=== PATIENT | male | born 1930 | race Caucasian/White ===

== ENCOUNTER 2017-09-07 06:59 | Inpatient (IN) | payer OTHER ==
--- OUTSIDE RECORDS SUMMARY | 2017-09-07 07:01 | XMS REPORT ---
:1930 [facility] [address] [place] [address] Care Team Providers Name Role Phone JONATHON NAJERA Unavailable Unavailable Problems This patient has no known problems. Allergies, Adverse Reactions, Alerts This patient has no known allergies or adverse reactions. Medications This patient has no known medications. Results Test Description Test Time Test Comments Text Results Atomic Results Result Comments URINE CULTURE 2016-10-12 11:00:00 Test Item Value Reference Range Comments CULTURE (BEAKER) (test mihe=6798) No growth TROPONIN [id number] 14:17:00 Test Item Value Reference Range Comments TROPONIN I (BEAKER) (test kqzk=719) 0.03 ng/mL 0.00-0.03 Effective 04/17/2014: Reference Range ChangeNew: 0.00-0.03 Previous 0.00- 0.15Troponin I (TnI) levels must be interpreted in the context of the presenting symptoms and the clinical findings. Elevated TnI levels indicate myocardial damage, but are not specific for ischemic heart disease. Elevated TnI levels are seen in patients with other cardiac conditions (including myocarditis and congestive heartfailure), and slight TnI elevations occur in patients with other conditions, including sepsis, renalfailure, acidosis, acute neurological disease, and persistent tachyarrhythmia.FastingURINALYSIS W/ [id number] 09:46:00 Test Item Value Reference Range Comments COLOR (BEAKER) (test boab=306) Yellow CLARITY (BEAKER) (test ecpl=321) Clear SPECIFIC GRAVITY UA (BEAKER) (test hbty=498) 1.009 1.001-1.035 PH UA (BEAKER) (test kzpt=136) 5.5 5.0-8.0 PROTEIN UA (BEAKER) (test vwkv=718) Negative Negative GLUCOSE UA (BEAKER) (test ynma=003) Negative Negative KETONES UA (BEAKER) (test kkao=681) Negative Negative BILIRUBIN UA (BEAKER) (test htpi=340) Negative Negative BLOOD UA (BEAKER) (test ihlu=937) Trace Negative NITRITE UA (BEAKER) (test ulft=730) Negative Negative LEUKOCYTE ESTERASE UA (BEAKER) (test wuys=637) Moderate Negative UROBILINOGEN UA (BEAKER) (test lwye=430) 0.2 mg/dL 0.2-1.0 RBC UA (BEAKER) (test atfn=464) 6 /HPF WBC UA (BEAKER) (test iuln=388) 6 /HPF SOURCE(BEAKER) (test uqrl=2925) Urine, Voided HEMOGLOBIN [id number] 09:13:00 Test Item Value Reference Range Comments HEMOGLOBIN A1C (BEAKER) (test lvtf=288) 4.8 % 4.3-6.1 TSH/FREE T4 IF [id number] 08:42:00 Test Item Value Reference Range Comments THYROID STIMULATING HORMONE (BEAKER) (test 2.41 uIU/mL 0.35-4.94 mrzl=389) VITAMIN B12 AND [id number] 08:42:00 Test Item Value Reference Range Comments VITAMIN B12 (BEAKER) (test jshq=616) 526 pg/mL 213-816 FOLATE (BEAKER) (test qyje=826) 15.4 ng/mL >=7.0 Effective 04/17/2014: Folate Reference Range ChangeNew: >=7.0 Previous: & gt;=5.4CBC W/PLT COUNT & AUTO [id number] 08:18:00 Test Item Value Reference Range Comments WHITE BLOOD CELL COUNT (BEAKER) (test sljb=152) 7.1 K/ L 4.0-10.0 RED BLOOD CELL COUNT (BEAKER) (test xzny=677) 4.37 M/ L 4.20-5.80 HEMOGLOBIN (BEAKER) (test wzwl=866) 14.0 GM/DL 13.0-16.8 HEMATOCRIT (BEAKER) (test pmxi=779) 41.3 % 40.0-50.0 MEAN CORPUSCULAR VOLUME (BEAKER) (test doif=862) 94.6 fL 82.0-98.0 MEAN CORPUSCULAR HEMOGLOBIN (BEAKER) (test 32.0 pg 27.0-33.0 jitx=467) MEAN CORPUSCULAR HEMOGLOBIN CONC (BEAKER) (test 33.8 GM/DL 32.0-36.0 zexu=971) RED CELL DISTRIBUTION WIDTH (BEAKER) (test 12.9 % 10.3-14.2 mzmz=949) PLATELET COUNT (BEAKER) (test qunv=863) 114 K/CU MM 150-430 MEAN PLATELET VOLUME (BEAKER) (test kzrm=261) 8.8 fL 6.5-10.5 NUCLEATED RED BLOOD CELLS (BEAKER) (test 0 /100 WBC 0-0 lkjq=819) NEUTROPHILS RELATIVE PERCENT (BEAKER) (test 57 % ymfh=446) LYMPHOCYTES RELATIVE PERCENT (BEAKER) (test 26 % inbi=561) MONOCYTES RELATIVE PERCENT (BEAKER) (test 12 % acai=332) EOSINOPHILS RELATIVE PERCENT (BEAKER) (test 5 % xgai=936) BASOPHILS RELATIVE PERCENT (BEAKER) (test 0 % tllf=469) NEUTROPHILS ABSOLUTE COUNT (BEAKER) (test 4.10 K/ L 1.80-8.00 xxri=318) LYMPHOCYTES ABSOLUTE COUNT (BEAKER) (test 1.85 K/ L 1.48-4.50 pjwv=888) MONOCYTES ABSOLUTE COUNT (BEAKER) (test 0.83 K/ L 0.00-1.30 jhhy=241) EOSINOPHILS ABSOLUTE COUNT (BEAKER) (test 0.34 K/ L 0.00-0.50 ahzl=279) BASOPHILS ABSOLUTE COUNT (BEAKER) (test 0.03 K/ L 0.00-0.20 zvqr=237) [id number] 07:39:00 Test Item Value Reference Range Comments PHOSPHORUS (BEAKER) (test ickm=385) 3.0 mg/dL 2.3-4.7 [id number] 07:39:00 Test Item Value Reference Range Comments MAGNESIUM (BEAKER) (test kvrp=842) 2.0 mg/dL 1.6-2.6 FastingCOMPREHENSIVE METABOLIC [id number] 07:39:00 Test Item Value Reference Range Comments TOTAL PROTEIN (BEAKER) 6.2 gm/dL 6.0-8.3 (test dxbs=414) ALBUMIN (BEAKER) (test 3.4 g/dL 3.5-5.0 xiat=6354) ALKALINE PHOSPHATASE 94 U/L 40-150 (BEAKER) (test mhvs=683) BILIRUBIN TOTAL (BEAKER) 1.1 mg/dL 0.2-1.2 (test aixp=268) SODIUM (BEAKER) (test 138 meq/L 136-145 itov=807) POTASSIUM (BEAKER) (test 3.9 meq/L 3.5-5.1 xepa=583) CHLORIDE (BEAKER) (test 108 meq/L 98-107 kqhs=894) CO2 (BEAKER) (test 21 meq/L 22-29 tnqq=497) BLOOD UREA NITROGEN 19 mg/dL 7-21 (BEAKER) (test dggv=773) CREATININE (BEAKER) (test 1.05 mg/dL 0.57-1.25 mfog=790) GLUCOSE RANDOM (BEAKER) 84 mg/dL 70-105 (test vqqe=594) CALCIUM (BEAKER) (test 9.5 mg/dL 8.4-10.2 pnvm=624) AST (SGOT) (BEAKER) (test 26 U/L 5-34 vkvj=174) ALT (SGPT) (BEAKER) (test 26 U/L 6-55 tbsx=516) EGFR (BEAKER) (test 67 mL/min/1.73 sq m ESTIMATED GFR IS NOT wnej=4616) ACCURATE CREATININE CLEARANCE IN PREDICTING GLOMERULAR FILTRATION RATE. ESTIMATED GFR IS NOT APPLICABLE FOR DIALYSIS PATIENTS. FastingLIPID [id number] 07:39:00 Test Item Value Reference Range Comments TRIGLYCERIDES (BEAKER) (test ybcw=608) 69 mg/dL CHOLESTEROL (BEAKER) (test jmam=949) 128 mg/dL HDL CHOLESTEROL (BEAKER) (test dshz=343) 42 mg/dL LDL CHOLESTEROL CALCULATED (BEAKER) (test 72 mg/dL cvkf=132) Triglyceride Reference Range: Low Risk <150 Borderline 150- 199 High Risk 200-499 Very High Risk >=500Cholesterol Reference Range: Low Risk <200 Borderline 200-239 High Risk > 240HDL Cholesterol Reference Range: Low Risk >=60 High Risk <40LDL Cholesterol Reference Range: Optimal <100 Near Optimal 100-129 Borderline 130-159 High 160-189 Very High >=190 FastingTROPONIN [id number] 02:04:00 Test Item Value Reference Range Comments TROPONIN I (ARPAN) (test nmgc=851) 0.03 ng/mL 0.00-0.03 Effective 04/17/2014: Reference Range ChangeNew: 0.00-0.03 Previous 0.00- 0.15Troponin I (TnI) levels must be interpreted in the context of the presenting symptoms and the clinical findings. Elevated TnI levels indicate myocardial damage, but are not specific for ischemic heart disease. Elevated TnI levels are seen in patients with other cardiac conditions (including myocarditis and congestive heartfailure), and slight TnI elevations occur in patients with other conditions, including sepsis, renalfailure, acidosis, acute neurological disease, and persistent tachyarrhythmia.
--- OUTSIDE RECORDS SUMMARY | 2017-09-07 07:01 | XMS REPORT | Clinical Summary ---
:1930 Author Organization [facility] Address [address] [place] [address] Phone Care Team Providers Name Role Phone Unavailable Primary Care Provider Unavailable Allergies No Known Allergies Current Medications Prescription Sig. Disp. Refills Start Date End Date Status atorvastatin (LIPITOR) 40 Take 40 mg by Active MG tablet mouth daily. furosemide (LASIX) 40 MG Take 40 mg by Active tablet mouth daily. clopidogrel (PLAVIX) 75 mg Take 75 mg by Active tablet mouth daily. metoprolol (TOPROL-XL) 25 Take 25 mg by Active MG 24 hr tablet mouth daily. potassium chloride SA Take 20 mEq by Active (K-DUR,KLOR-CON) 20 MEQ mouth daily. tablet Active Problems Problem Noted Date Cerebrovascular accident (CVA), unspecified mechanism ([facility]) 10/11/2016 Left-sided weakness 10/11/2016 Stroke ([facility]) 10/10/2016 Uncontrolled hypertension 10/10/2016 Coronary artery disease involving [place] coronary artery of [place] heart 10/10 without angina pectoris S/P CABG x 3 10/10/2016 Skin cancer 10/10/2016 H/O aortic aneurysm repair 10/10/2016 S/P placement of cardiac pacemaker 10/10/2016 Mixed hyperlipidemia 10/10/2016 Encounters Date Type Specialty Care Team Description 10/10/2016 - Hospital Encounter General Internal [place], Cerebrovascular 10/11/2016 Medicine MD Wilmer accident (CVA), [place], unspecified mechanism Danis Barrow MD ([facility]);Uncontrolled hypertension;Left-sided weakness after 09/06/2016 Social History Tobacco Use Types Packs/Day Years Used Date Never Assessed Sex Assigned at Date Recorded Not on file Last Filed Vital Signs Vital Sign Reading Time Taken Blood Pressure 187/81 10/11/2016 8:15 AM CDT Pulse 88 10/11/2016 8:15 AM CDT Temperature 36.4 C (97.5 F) 10/11/2016 8:15 AM CDT Respiratory Rate 18 10/11/2016 8:15 AM CDT Oxygen Saturation 95% 10/11/2016 8:15 AM CDT Inhaled Oxygen Concentration - - Weight 65.8 kg (145 lb) 10/11/2016 12:00 AM CDT Height 172.7 cm (5' 8") 10/11/2016 12:00 AM CDT Body Mass Index 22.05 10/11/2016 12:00 AM CDT Plan of Treatment Not on file Results EKG-SCANNED (11/24/2016 12:20 PM)RHYTHM STRIP - SCAN (10/13/2016 2:00 PM) PERIPHERAL VASCULAR REPORT - SCAN (10/11/2016 3:20 PM)Carotid doppler bilateral (10/11/2016 10:30 AM) Component Value Ref Range Ejection Fraction Specimen Performing Laboratory SLE ECHO HEARTLAB MKCKESSON CPACS Impressions Right Impression 1. Post stent placement, the internal carotid artery is patent with velocities of: Pre stent- 51 cm/sec, proximal stent- 41 cm/sec , post stent- 67 cm/sec. 2. There is non-occluding plaque in the external carotid artery. 3. There is non-occluding plaque in the common carotid artery. 4. The vertebral artery flow is antegrade and normal. 5. The subclavian artery is within normal limits where visualized. Left Impression 1. There is <50% diameter reduction (approximately 48% by 2-D measurement) in the internal carotid artery with a peak velocity of 90 cm/sec and heterogeneous plaque. 2. There is non-occluding plaque in the external carotid artery. 3. There is non-occluding plaque in the common carotid artery. 4. Post endarterectomy, the distal common carotid artery is patent with a velocity of 49 cm/sec. 4. The vertebral artery flow is antegrade and normal. 5. The subclavian artery is within normal limits where visualized. Conclusions Summary Carotid duplex scanning and color flow imaging were performed bilaterally. The arteries were adequately visualized. Post stent placement, the right internal carotid artery was patent with no significant stenosis. The left internal carotid artery had <50% hemodynamically insignificant stenosis (approximately 48% by 2-D measurement) with heterogeneous plaque. Post endarterectomy, the left distal common carotid artery was patent with no significant stenosis. The vertebral artery flow was antegrade and normal bilaterally. The subclavian arteries were patent with normal flow bilaterally where visualized. Signature Velocities are measured in cm/s ; Diameters are measured in cm Carotid Right Measurements + +----+----+-----+ + + + !Location !PSV !EDV !Angle!%Stenosis 2D!%Stenosis Doppler! Tortuosity ! + +----+----+-----+ + + + !Prox CCA !63.9!12.3!60 !! ! ! + +----+----+-----+ + + + !Dist CCA !51.9!9.04!60 !! ! ! + +----+----+-----+ + + + !Prox ICA !41!12.9!60 !! ! ! + +----+----+-----+ + + + !Dist ICA !67.4!19.3!60 !! ! ! + +----+----+-----+ + + + !Prox ECA !121 !17.7!60 !! ! ! + +----+----+-----+ + + + !Vertebral!36.9!8.64!60 !! ! ! + +----+----+-----+ + + + !Prox Subclavian!105 !0 !60 !! ! ! + +----+----+-----+ + + + - There is antegrade vertebral flow noted on the right side. - Additional Measurements:ICAPSV/CCAPSV 1.3.ICAEDV/CCAEDV 1.57. Carotid Left Measurements + +----+----+-----+ + + + !Location !PSV !EDV !Angle!%Stenosis 2D!%Stenosis Doppler! Tortuosity ! + +----+----+-----+ + + + !Prox CCA !77!12.6!60 !! ! ! + +----+----+-----+ + + + !Dist CCA !49.5!8.64!60 !! ! ! + +----+----+-----+ + + + !Prox ICA !51.5!9.43!60 !! ! ! + +----+----+-----+ + + + !Dist ICA !90.4!28.3!60 !! ! ! + +----+----+-----+ + + + !Prox ECA !64.4!0 !60 !! ! ! + +----+----+-----+ + + + !Vertebral!69.1!22!60 !! ! ! + +----+----+-----+ + + + !Prox Subclavian!120 !0 !60 !! ! ! + +----+----+-----+ + + + - There is antegrade vertebral flow noted on the left side. - Additional Measurements:ICAPSV/CCAPSV 1.83.ICAEDV/CCAEDV 2.25. Narrative PV LAB - Carotid Duplex Study Demographics Patient Name Abraham HAMILTON of Study10/11/2016 [id number] Age86 Visit Number [id number] Gender Male Accession Number [id number] [facility]1930 [facility]icianOn License Of [facility] Centersasha SonographRoseline Singh Interpreting Cristiane Weinstein, Physician, DAWNVI Procedure Type of Study: Cerebral: Carotid, CAROTID DOPPLER, BILATERAL. Indications for Study:CVA. Patient Status:Routine. Study Location:Portable. Technical Quality:Adequate visualization. Risk Factors History of Disease + +----+ + !Diagnosis!Date!Comments ! + +----+ + !History/Risk !!Stroke, HTN, CAD w/ CABG X3, h/o Aortic Aneurysm ! !Factors: !!repair, HLD, Rt ICA stent, Lt CEA! + +----+ + Procedure Note Interface, External Ris In - 10/11/2016 2:42 PM CDT PV LAB - Carotid Duplex Study Demographics Patient Name AUDREY HAMILTON Date of Study 10/11/2016 Age 86 Visit Number [id number] Gender Male Accession Number [id number] Date of 1930 [facility] Room Number 2235 Physician [place] Boiler Inspectorevelin Singh Interpreting Cristiane Weinstein, Physician , ADRIENNE Procedure Type of Study: Cerebral: Carotid, CAROTID DOPPLER, BILATERAL. Indications for Study:CVA. Patient Status:Routine. Study Location:Portable. Technical Quality:Adequate visualization. Risk Factors History of Disease + +----+ + !Diagnosis !Date!Comments ! + +----+ + !History/Risk ! !Stroke, HTN, CAD w/ CABG X3, h/o Aortic Aneurysm ! !Factors: ! !repair, HLD, Rt ICA stent, Lt CEA ! + +----+ + Impressions Right Impression 1. Post stent placement, the internal carotid artery is patent with velocities of: Pre stent- 51 cm/sec, proximal stent- 41 cm/sec , post stent- 67 cm/sec. 2. There is non-occluding plaque in the external carotid artery. 3. There is non-occluding plaque in the common carotid artery. 4. The vertebral artery flow is antegrade and normal. 5. The subclavian artery is within normal limits where visualized. Left Impression 1. There is <50% diameter reduction (approximately 48% by 2-D measurement) in the internal carotid artery with a peak velocity of 90 cm/sec and heterogeneous plaque. 2. There is non-occluding plaque in the external carotid artery. 3. There is non-occluding plaque in the common carotid artery. 4. Post endarterectomy, the distal common carotid artery is patent with a velocity of 49 cm/sec. 4. The vertebral artery flow is antegrade and normal. 5. The subclavian artery is within normal limits where visualized. Conclusions Summary Carotid duplex scanning and color flow imaging were performed bilaterally. The arteries were adequately visualized. Post stent placement, the right internal carotid artery was patent with no significant stenosis. The left internal carotid artery had <50% hemodynamically insignificant stenosis (approximately 48% by 2-D measurement) with heterogeneous plaque. Post endarterectomy, the left distal common carotid artery was patent with no significant stenosis. The vertebral artery flow was antegrade and normal bilaterally. The subclavian arteries were patent with normal flow bilaterally where visualized. Signature Velocities are measured in cm/s ; Diameters are measured in cm Carotid Right Measurements + +----+----+-----+ + + + !Location !PSV !EDV !Angle!%Stenosis 2D!%Stenosis Doppler!Tortuosity ! + +----+----+-----+ + + + !Prox CCA !63.9!12.3!60 ! ! ! ! + +----+----+-----+ + + + !Dist CCA !51.9!9.04!60 ! ! ! ! + +----+----+-----+ + + + !Prox ICA !41 !12.9!60 ! ! ! ! + +----+----+-----+ + + + !Dist ICA !67.4!19.3!60 ! ! ! ! + +----+----+-----+ + + + !Prox ECA !121 !17.7!60 ! ! ! ! + +----+----+-----+ + + + !Vertebral !36.9!8.64!60 ! ! ! ! + +----+----+-----+ + + + !Prox Subclavian!105 !0 !60 ! ! ! ! + +----+----+-----+ + + + - There is antegrade vertebral flow noted on the right side. - Additional Measurements:ICAPSV/CCAPSV 1.3.ICAEDV/CCAEDV 1.57. Carotid Left Measurements + +----+----+-----+ + + + !Location !PSV !EDV !Angle!%Stenosis 2D!%Stenosis Doppler!Tortuosity ! + +----+----+-----+ + + + !Prox CCA !77 !12.6!60 ! ! ! ! + +----+----+-----+ + + + !Dist CCA !49.5!8.64!60 ! ! ! ! + +----+----+-----+ + + + !Prox ICA !51.5!9.43!60 ! ! ! ! + +----+----+-----+ + + + !Dist ICA !90.4!28.3!60 ! ! ! ! + +----+----+-----+ + + + !Prox ECA !64.4!0 !60 ! ! ! ! + +----+----+-----+ + + + !Vertebral !69.1!22 !60 ! ! ! ! + +----+----+-----+ + + + !Prox Subclavian!120 !0 !60 ! ! ! ! + +----+----+-----+ + + + - There is antegrade vertebral flow noted on the left side. - Additional Measurements:ICAPSV/CCAPSV 1.83.ICAEDV/CCAEDV 2.25. CT brain without IV contrast (10/11/2016 9:40 AM) Specimen Performing Laboratory GE RIS Impressions : No intracranial hemorrhage or mass effect. Mild ischemic changes, stable when compared to 10/10/2016. Signed: Shelton Dixon MD Report Verified Date/Time:10/11/2016 09:43:36 Reading Location: [facility] C013V Neuro Reading Room Narrative FINAL REPORT CT head without contrast 10/11/2016 9:40 AM CLINICAL HISTORY: Follow up CT to assess for stroke. Cannot get MRI 2/2 pacemaker TECHNIQUE: Axial noncontrast CT images through the head were obtained. This examination was performed according to our departmental dose optimization program, which includes automated exposure control, adjustment of the mA and/or kV according to patient size, and/or use of iterated reconstruction technique. COMPARISON: 10/10/2016 FINDINGS: There is no hemorrhage, extra-axial collection, hydrocephalus, or midline shift. A 3 mm hyperdense nodule along the anterior frontal falx may reflect an incidental meningioma. There is mild microvascular ischemia in the right greater than left supratentorial white matter. There is a small infarct in the right caudate nucleus. There is atherosclerotic calcification of the intracranial arterial vasculature. There is generalized parenchymal volume loss. The visualized paranasal sinuses and mastoid air cells are well aerated. The skull is intact. Procedure Note Interface, External Ris In - 10/11/2016 9:52 AM CDT FINAL REPORT CT head without contrast 10/11/2016 9:40 AM CLINICAL HISTORY: Follow up CT to assess for stroke. Cannot get MRI 2/2 pacemaker TECHNIQUE: Axial noncontrast CT images through the head were obtained. This examination was performed according to our departmental dose optimization program, which includes automated exposure control, adjustment of the mA and/or kV according to patient size, and/or use of iterated reconstruction technique. COMPARISON: 10/10/2016 FINDINGS: There is no hemorrhage, extra-axial collection, hydrocephalus, or midline shift. A 3 mm hyperdense nodule along the anterior frontal falx may reflect an incidental meningioma. There is mild microvascular ischemia in the right greater than left supratentorial white matter. There is a small infarct in the right caudate nucleus. There is atherosclerotic calcification of the intracranial arterial vasculature. There is generalized parenchymal volume loss. The visualized paranasal sinuses and mastoid air cells are well aerated. The skull is intact. IMPRESSION : No intracranial hemorrhage or mass effect. Mild ischemic changes, stable when compared to 10/10/2016. Signed: Shelton Dixon MD Report Verified Date/Time: 10/11/2016 09:43:36 Reading Location: [facility] C013V Neuro Reading Room Urine culture (10/11/2016 8:47 AM) Component Value Ref Range Result No growth Specimen Performing Laboratory Urine - Urine, Voided [address] [address] Urinalysis w/Microscopic (10/11/2016 8:46 AM) Component Value Ref Range Color, UA Yellow Clarity, UA Clear Specific [place], UA 1.009 1.001 - 1.035 pH, UA 5.5 5.0 - 8.0 Protein, UA Negative Negative Glucose, UA Negative Negative Ketones, UA Negative Negative Bilirubin, UA Negative Negative Blood, UA Trace (A) Negative Nitrite, UA Negative Negative Leukocytes, UA Moderate (A) Negative Urobilinogen, UA 0.2 0.2 - 1.0 mg/dL RBC, UA 6 /HPF WBC, UA 6 /HPF Specimen Source Urine, Voided Specimen Performing Laboratory Urine - Urine, Voided [address] [address] Vitamin B12 and Folate (10/11/2016 6:14 AM) Component Value Ref Range Vitamin B12 526 213 - 816 pg/mL Folate 15.4 >=7.0 ng/mL Specimen Performing Laboratory Blood - Arm, [address] [address] Narrative Effective 04/17/2014: Folate Reference Range Change New: >=7.0Previous: >=5.4 TSH/Free T4 If Indicated (10/11/2016 6:14 AM) Component Value Ref Range TSH 2.41 0.35 - 4.94 uIU/mL Specimen Performing Laboratory Blood - Arm, [address] [address] CBC with platelet count + automated diff (10/11/2016 6:14 AM) Component Value Ref Range WBC 7.1 4.0 - 10.0 K/L RBC 4.37 4.20 - 5.80 M/L Hemoglobin 14.0 13.0 - 16.8 GM/DL Hematocrit 41.3 40.0 - 50.0 % MCV 94.6 82.0 - 98.0 fL MCH 32.0 27.0 - 33.0 pg MCHC 33.8 32.0 - 36.0 GM/DL RDW 12.9 10.3 - 14.2 % Platelets 114 (L) 150 - 430 K/CU MM MPV 8.8 6.5 - 10.5 fL nRBC 0 0 - 0 /100 WBC % Neutros 57 % % Lymphs 26 % % Monos 12 % % Eos 5 % % Baso 0 % # Neutros 4.10 1.80 - 8.00 K/L # Lymphs 1.85 1.48 - 4.50 K/L # Monos 0.83 0.00 - 1.30 K/L # Eos 0.34 0.00 - 0.50 K/L # Baso 0.03 0.00 - 0.20 K/L Specimen Performing Laboratory Blood - Arm, [address] [address] Narrative 0.00 Troponin I (10/11/2016 6:14 AM)Only the most recent of2 resultswithin the time period is included. Component Value Ref Range Troponin I 0.03 0.00 - 0.03 ng/mL Specimen Performing Laboratory Blood - Arm, [address] [address] Narrative Effective 04/17/2014: Reference Range Change New: 0.00-0.03 Previous 0.00-0.15 Troponin I (TnI) levels must be interpreted in the context of the presenting symptoms and the clinical findings. Elevated TnI levels indicate myocardial damage, but are not specific for ischemic heart disease. Elevated TnI levels are seen in patients with other cardiac conditions (including myocarditis and congestive heart failure), and slight TnI elevations occur in patients with other conditions, including sepsis, renal failure, acidosis, acute neurological disease, and persistent tachyarrhythmia. Fasting CBC with platelet count + automated diff (10/11/2016 6:14 AM) Specimen Performing Laboratory Blood Narrative The following orders were created for panel order CBC with platelet count + automated diff. Procedure Abnormality Status --------- ------ CBC with platelet count ...[[id number]]AbnormalFinal result Please view results for these tests on the individual orders. Phosphorus (10/11/2016 6:14 AM) Component Value Ref Range Phosphorus 3.0 2.3 - 4.7 mg/dL Specimen Performing Laboratory Blood - Arm, [address] [address] Narrative Fasting Magnesium (10/11/2016 6:14 AM) Component Value Ref Range Magnesium 2.0 1.6 - 2.6 mg/dL Specimen Performing Laboratory Blood - Arm, [place] [address] Narrative Fasting Hemoglobin A1c (10/11/2016 6:14 AM) Component Value Ref Range Hemoglobin A1C 4.8 4.3 - 6.1 % Specimen Performing Laboratory Blood - Arm, [address] [address] Fasting lipid panel (10/11/2016 6:14 AM) Component Value Ref Range Triglycerides 69 mg/dL Cholesterol 128 mg/dL HDL 42 mg/dL LDL Calculated 72 mg/dL Specimen Performing Laboratory Blood - Arm, [address] [address] Narrative Triglyceride Reference Range: Low Risk <150 [id number] High Risk 200-499 Very High Risk>=500 Cholesterol Reference Range: Low Risk <200 [id number] High Risk>240 HDL Cholesterol Reference Range: Low Risk >=60 High Risk <40 LDL Cholesterol Reference Range: Optimal<100 Near [id number] [id number] Very High >=190 Fasting Comprehensive metabolic panel (10/11/2016 6:14 AM) Component Value Ref Range Protein, Total 6.2 6.0 - 8.3 gm/dL Albumin 3.4 (L) 3.5 - 5.0 g/dL Alkaline Phosphatase 94 40 - 150 U/L Total Bilirubin 1.1 0.2 - 1.2 mg/dL Sodium 138 136 - 145 meq/L Potassium 3.9 3.5 - 5.1 meq/L Chloride 108 (H) 98 - 107 meq/L CO2 21 (L) 22 - 29 meq/L BUN 19 7 - 21 mg/dL Creatinine 1.05 0.57 - 1.25 mg/dL Glucose 84 70 - 105 mg/dL Calcium 9.5 8.4 - 10.2 mg/dL AST 26 5 - 34 U/L ALT 26 6 - 55 U/L EGFR 67Comment: ESTIMATED GFR IS NOT ACCURATE mL/min/1.73 sq m CREATININE CLEARANCE IN PREDICTING GLOMERULAR FILTRATION RATE. ESTIMATED GFR IS NOT APPLICABLE FOR DIALYSIS PATIENTS. Specimen Performing Laboratory Blood - Arm, [place] [address] Narrative Fasting XR chest 1 view portable / bedside (10/10/2016 9:45 PM) Specimen Performing Laboratory GE RIS Narrative FINAL REPORT History: Rule out pneumonia. Comparison: None. Findings: A single view of the chest is submitted. The cardiac silhouette is at the upper limits of normal for size. There is atherosclerotic calcification of the aorta. Median sternotomy wires and a left subclavian, dual-lead pacemaker are in place. There is a small left pleural effusion. Retrocardiac opacity in the left lung may reflect atelectasis but pneumonia should be excluded clinically. There is no pneumothorax or acute bony abnormality. Signed: Braden Romero MD Report Verified Date/Time:10/10/2016 22:16:17 Reading Location: [address] Reading Room Procedure Note Interface, External Ris In - 10/10/2016 10:18 PM CDT FINAL REPORT History: Rule out pneumonia. Comparison: None. Findings: A single view of the chest is submitted. The cardiac silhouette is at the upper limits of normal for size. There is atherosclerotic calcification of the aorta. Median sternotomy wires and a left subclavian, dual-lead pacemaker are in place. There is a small left pleural effusion. Retrocardiac opacity in the left lung may reflect atelectasis but pneumonia should be excluded clinically. There is no pneumothorax or acute bony abnormality. Signed: Braden Romero MD Report Verified Date/Time: 10/10/2016 22:16:17 Reading Location: [address] Room after 09/06/2016
[2017-09-07] MEDS ORDERED: FUROSEMIDE 40 MG/4 ML VIAL ONE (07:32)
[2017-09-07 08:04] LABS: Absolute Monocytes 0.8 K/uL (0.1-1.3); Absolute Neutrophil 6.1 K/uL (1.8-8.0); Basophils % 0.3 % (0-1.3); Eosinophils % 0.2 % (0-4.4); Hematocrit 43.9 % (39.6-49.0); MCH 29.5 pg (27.0-35.0); MCV 90.3 fL (80-100); MPV 9.8 fL (7.6-11.3); Monocytes % 10.2 % (3.3-12.3); RBC Red Blood Cell Count 4.86 M/uL (4.33-5.43)
[2017-09-07 08:07] LABS: Protime INR 1.14
[2017-09-07 08:20] LABS: Potassium 4.9 mEq/L (3.6-5.0)
--- NOTE | 2017-09-07 08:38 | RAD REPORT ---
EXAM DESCRIPTION: RAD - Chest Single View - 09/07/2017 8:12 am CLINICAL HISTORY: Productive cough, shortness of breath COMPARISON: September 2016 TECHNIQUE: AP portable chest image was obtained 0807 hours . FINDINGS: Lung volumes are normal. Patient has chronic interstitial lung disease not substantially d ifferent from the comparison. There is left pleural effusion and left base opacification obscuring th e left hemidiaphragm. Heart size is slightly enlarged from the prior study. Upper lobe vasculature wi thin normal limits. A 2 lead left subclavian pacemaker is in place with sternotomy wires present. No pneumothorax. Trachea is midline. Thoracic spine degenerative changes are present only minimally imag ed. No acute aortic findings suspected. IMPRESSION: Pleural effusion with left lung base pneumonia and/ or atelectasis. Heart size is upper normal. Significant failure or volume overload are doubtful. Baseline of chronic interstitial lung disease.
--- NOTE | 2017-09-07 08:57 | ER ---
Nurse's Notes [facility] Name: Marcial Hamilton Age: 87 yrs Sex: Male : 1930 Arrival Date: 09/07/2017 Time: 07:00 Bed 13 Private MD: Diagnosis: Unspecified combined systolic (congestive) and diastolic (congestive) heart failure;Pulmonary edema;Hypoxemia Presentation: 09/07 07:07 Presenting complaint: Patient states: Productive cough with white sputum and SOB x 2 hb days. Denies pain/fever. Hx HTN, COPD, CABG. Has not taken morning meds yet. Transition of care: patient was not received from another setting of care. Onset of symptoms was September 05, 2017. Care prior to arrival: None. 07:07 Method Of Arrival: Ambulatory hb 07:07 Acuity: LEANDRO 3 hb Triage Assessment: 07:29 Respiratory: Reports cough that is productive, with white phlegm Onset: The ap3 symptoms/episode began/occurred 09/05/2017, the patient has moderate shortness of breath. Historical: - Allergies: 07:09 Codeine; hb - Home Meds: 07:09 aspirin 325 mg Oral tab 1 tab once daily [Active]; atorvastatin 40 mg Oral tab 1 tab hb once daily [Active]; clopidogrel 75 mg Oral tab 1 tab once daily [Active]; furosemide 40 mg Oral tab 1 tab once daily [Active]; metoprolol tartrate 25 mg Oral tab 1 tab once daily [Active]; potassium chloride 20 mEq Oral TbER 1 tab once daily [Active]; - PMHx: 07:09 "fluid around the heart"; CHF; CVA; enlarged prostate; Hyperlipidemia; Hypertension; hb Myocardial infarction; - PSHx: 07:09 stents in left ear; triple bypass; AAA repair; Cholecystectomy; pace maker; hb - Immunization history:: Adult Immunizations up to date. - Social history:: Smoking status: Patient/guardian denies using tobacco. - Family history:: not pertinent. - Hospitalizations: : No recent hospitalization is reported. Screenin:28 Abuse screen: Denies threats or abuse. Nutritional screening: No deficits noted. ap3 Tuberculosis screening: No symptoms or risk factors identified. Fall Risk None identified. Assessment: 07:24 General: Appears distressed, slender, Behavior is calm, cooperative. Pain: Complains of ap3 pain in chest Aggravated by coughing. Neuro: Level of Consciousness is awake, alert, obeys commands, Oriented to person, place, time, situation. Cardiovascular: Heart tones S1 S2 present Patient's skin is warm and dry. Rhythm is regular. Respiratory: Airway is patent Respiratory effort is even, unlabored, Breath sounds are diminished bilaterally. GI: Abdomen is flat, Bowel sounds present X 4 quads. : No signs and/or symptoms were reported regarding the genitourinary system. EENT: No signs and/or symptoms were reported regarding the EENT system. Derm: Bruising that is dark purple, on right arm and left arm. Musculoskeletal: Reports weakness in generalized weakness of the body. 09:32 Reassessment: patient sitting up in bed, watching TV. Spouse at the bedside. ap3 Respirations even and unlabored. Call oscar within reach. 10:33 Reassessment: patient sitting up in bed, watching TV. Respirations even and unlabored. ap3 Spouse at the bedside. Gave patient an update on room assignment. 10:49 Reassessment: called report to 4th floor. Spoke to Sherie, who states that the room ap3 isn't clean yet. Transferred to receiving nurse to give report. Report given to SHIV Rodriguez. 11:01 Reassessment: I agree with th above assessments. ae1 Vital Signs: 07:08 BP 170 / 111; Pulse 104; Resp 20; Temp 98; Pulse Ox 99% on R/A; Pain 0/10; hb 09:10 BP 170 / 93; Pulse 108; Resp 25; Pulse Ox 98% on 2 lpm NC; mh5 09:25 BP 169 / 92; Pulse 109; Resp 17; Pulse Ox 98% on 2 lpm NC; ae1 10:56 BP 165 / 101; Pulse 107; Resp 19; Pulse Ox 95% on 2 lpm NC; ap3 ED Course: 07:00 Patient arrived in ED. ds1 07:05 Kwadwo Estrada MD is Attending Physician. rn 07:08 Triage completed. hb 07:08 Arm band placed on left wrist. hb 07:31 Vitaly Freire, SHIV is Primary Nurse. ae1 07:31 Patient has correct armband on for positive identification. Bed in low position. Call ap3 light in reach. Side rails up X 1. Adult w/ patient. library monitor on. Pulse ox on. NIBP on. 07:58 Inserted saline lock: 22 gauge in right antecubital area, using aseptic technique. ap3 Blood collected. 08:12 XRAY CXR (1 view) In Process Unspecified. EDMS 08:12 X-ray completed. Portable x-ray completed in exam room. Patient tolerated procedure sw well. 08:43 EKG done, by cadd technician. reviewed by Kwadwo Estrada MD. tc 08:56 Moror Donnelly MD is Hospitalizing Provider. rn 11:19 No provider procedures requiring assistance completed. Patient admitted, IV remains in ae1 place. Administered Medications: 07:51 Drug: Lasix 40 mg Route: IVP; Site: right antecubital; ae1 09:13 Follow up: Response: Other; 100 mls jadiel urine. ae1 11:21 Follow up: Response: Other; 300 mls jadiel urine ae1 09:07 Drug: Nitro-Bid Ointment 2 % 0.5 inches Route: Transdermal; Site: anterior chest wall; ae1 09:25 Follow up: Response: Blood pressure is lowered ae1 Intake: Outcome: 08:56 Decision to Hospitalize by Provider. rn 11:00 Attestation : I agree with the charting done by Oma Castañeda, school of nursing director. . ae1 11:20 Admitted to Tele accompanied by ashia, family with patient, room 420, with chart, Report ae1 called to SHIV Rodriguez 11:20 Condition: stable 11:20 Instructed on the need for admit, Demonstrated understanding of instructions. 11:22 Patient left the ED. ae1 Signatures: Dispatcher [employer] EDMO Hollie Heck ds1 Kwadwo Estrada MD MD rn Callis, Tiffany, secured entrance monitor EKG Ttc Alfreda Garcia Heather, RN RN hb Elliott, Andrea, RN RN ae1 Lisbeth Liao Terry Castañeda, Oma rios
--- NOTE | 2017-09-07 08:57 | EDPHYS ---
Physician Documentation [facility] Name: Marcial Hamilton Age: 87 yrs Sex: Male : 1930 Arrival Date: 09/07/2017 Time: 07:00 Bed 13 Private MD: ED Physician Kwadwo Estrada HPI: 09/07 07:26 This 87 yrs old Male presents to ER via Ambulatory with complaints of rn Breathing Difficulty, Weakness. 07:26 The patient has shortness of breath at rest, with light activity. Onset: The rn symptoms/episode began/occurred 3 day(s) ago. Duration: The symptoms are continuous. The patient's shortness of breath is aggravated by exertion, light activity, supine position, talking, walking. Severity of symptoms: At their worst the symptoms were moderate in the emergency department the symptoms are unchanged. The patient has experienced similar episodes in the past. Reports doesn't take his fluid pills regularly, has been sob for 2-3 days, no fever, + white sputum, + generalized weakness, no hemoptysis, also ran out of his BP meds recently. . Historical: - Allergies: 07:09 Codeine; hb - Home Meds: 07:09 aspirin 325 mg Oral tab 1 tab once daily [Active]; atorvastatin 40 mg Oral tab 1 tab hb once daily [Active]; clopidogrel 75 mg Oral tab 1 tab once daily [Active]; furosemide 40 mg Oral tab 1 tab once daily [Active]; metoprolol tartrate 25 mg Oral tab 1 tab once daily [Active]; potassium chloride 20 mEq Oral TbER 1 tab once daily [Active]; - PMHx: 07:09 "fluid around the heart"; CHF; CVA; enlarged prostate; Hyperlipidemia; Hypertension; hb Myocardial infarction; - PSHx: 07:09 stents in left ear; triple bypass; AAA repair; Cholecystectomy; pace maker; hb - Immunization history:: Adult Immunizations up to date. - Social history:: Smoking status: Patient/guardian denies using tobacco. - Family history:: not pertinent. - Hospitalizations: : No recent hospitalization is reported. ROS: 07:26 Constitutional: Negative for fever, chills, and weight loss, Eyes: Negative for injury, rn pain, redness, and discharge, Neck: Negative for injury, pain, and swelling, Cardiovascular: Negative for chest pain, palpitations Respiratory: Negative for wheezing, and pleuritic chest pain, Abdomen/GI: Negative for abdominal pain, nausea, vomiting, diarrhea, and constipation, Back: Negative for injury and pain, MS/Extremity: Negative for injury and deformity, Skin: Negative for injury, rash, and discoloration, Neuro: Negative for headache, numbness, tingling, and seizure. Exam: 07:26 Constitutional: This is a well developed, well nourished patient who is awake, alert, rn and in no acute distress. Head/Face: Normocephalic, atraumatic. Eyes: Pupils equal round and reactive to light, extra-ocular motions intact. Lids and lashes normal. Conjunctiva and sclera are non-icteric and not injected. Cornea within normal limits. Periorbital areas with no swelling, redness, or edema. Neck: Trachea midline, no thyromegaly or masses palpated, and no cervical lymphadenopathy. Supple, full range of motion without nuchal rigidity, or vertebral point tenderness. No Meningismus. Cardiovascular: Regular rate and rhythm with a normal S1 and S2. No gallops, murmurs, or rubs. Normal PMI, no JVD. No pulse deficits. Respiratory: + diminished bibasilar breath sounds, no wheezing, no retractions Abdomen/GI: Soft, non-tender, with normal bowel sounds. No distension or tympany. No guarding or rebound. No evidence of tenderness throughout. MS/ Extremity: Pulses equal, no cyanosis. Neurovascular intact. Full, normal range of motion. Equal circumference. Neuro: Awake and alert, GCS 15, oriented to person, place, time, and situation. Cranial nerves II-XII grossly intact. Motor strength 5/5 in all extremities. Sensory grossly intact. Vital Signs: 07:08 BP 170 / 111; Pulse 104; Resp 20; Temp 98; Pulse Ox 99% on R/A; Pain 0/10; hb 09:10 BP 170 / 93; Pulse 108; Resp 25; Pulse Ox 98% on 2 lpm NC; mh5 09:25 BP 169 / 92; Pulse 109; Resp 17; Pulse Ox 98% on 2 lpm NC; ae1 10:56 BP 165 / 101; Pulse 107; Resp 19; Pulse Ox 95% on 2 lpm NC; ap3 MDM: 07:05 Patient medically screened. rn 08:55 Differential diagnosis: CHF exacerbation, Pneumothorax pulmonary edema. Data reviewed: rn vital signs, nurses notes, lab test result(s), EKG, radiologic studies, plain films, and as a result, I will admit patient. Counseling: I had a detailed discussion with the patient and/or guardian regarding: the historical points, exam findings, and any diagnostic results supporting the discharge/admit diagnosis, lab results, radiology results, the need for further work-up and treatment in the hospital. Response to treatment: the patient's symptoms have mildly improved after treatment, and as a result, I will admit patient. Admission orders: after a detailed discussion of the patient's condition and case, the admit orders are written by me. ED course: Spoke and admitted to Dr. Donnelly at 0855. . 09/07 07:15 Order name: Blood Culture Adult (2) rn 09/07 07:15 Order name: BMP; Complete Time: 08:26 rn 09/07 07:15 Order name: BNP; Complete Time: 08:38 rn 09/07 07:15 Order name: CBC with Diff; Complete Time: 08:19 rn 09/07 07:15 Order name: PT-INR; Complete Time: 08:19 rn 09/07 07:15 Order name: Ptt, Activated; Complete Time: 08:19 rn 09/07 07:15 Order name: XRAY CXR (1 view); Complete Time: 08:49 rn 09/07 07:15 Order name: Troponin (emerg Dept Use Only); Complete Time: 08:38 rn 09/07 07:15 Order name: EKG; Complete Time: 07:16 rn 09/07 07:15 Order name: Cardiac monitoring; Complete Time: 07:32 rn 09/07 09:40 Order name: Urine Dipstick--Ancillary (enter results) ag 09/07 09:58 Order name: Urine Dipstick-Ancillary EDMS 09/07 07:15 Order name: EKG - Nurse/Tech; Complete Time: 08:39 rn 09/07 07:15 Order name: IV Saline Lock; Complete Time: 07:52 rn 09/07 07:15 Order name: Labs collected and sent; Complete Time: 07:52 rn 09/07 07:15 Order name: O2 Per Protocol; Complete Time: 07:32 rn 09/07 07:15 Order name: O2 Sat Monitoring; Complete Time: 07:32 rn Administered Medications: 07:51 Drug: Lasix 40 mg Route: IVP; Site: right antecubital; ae1 09:13 Follow up: Response: Other; 100 mls jadiel urine. ae1 11:21 Follow up: Response: Other; 300 mls jadiel urine ae1 09:07 Drug: Nitro-Bid Ointment 2 % 0.5 inches Route: Transdermal; Site: anterior chest wall; ae1 09:25 Follow up: Response: Blood pressure is lowered ae1 Disposition: 09/07/17 08:56 Hospitalization ordered by Morro Donnelly for Inpatient Admission. Preliminary diagnosis are Unspecified combined systolic (congestive) and diastolic (congestive) heart failure, Pulmonary edema, Hypoxemia. - Bed requested for Telemetry/MedSurg (Inpatient). - Status is Inpatient Admission. ae1 - Condition is Stable. - Problem is an acute exacerbation. - Symptoms have improved. UTI on Admission? No Signatures: Dispatcher [employer] EDMS Kwadwo Estrada MD MD rn Gallardo, Ana ag Baxter, Heather, RN RN hb Elliott, Andrea, RN RN ae1
[2017-09-07] MEDS ORDERED: NITROGLYCERIN 1 GM PKT TD ONE (08:58)
[2017-09-07 09:57] LABS: Urine Blood TRACE (NEG); Urine Glucose NEGATIVE (NEG); Urine Protein NEGATIVE (NEG); Urine pH 5.5 (5.0-7.0)
--- NOTE | 2017-09-07 10:19 | EKG ---
Test Date: 2017-09-07 Test Time: 08:27:18 Smeller: JONELLE MEASUREMENT RESULTS: Intervals: Rate: 107 MI: 208 QRSD: 142 QT: 364 QTc: 485 [place]: P: 48 MI: 208 QRS: 44 T: 197 INTERPRETIVE STATEMENTS: Sinus tachycardia with premature atrial complexes Left ventricular hypertrophy with QRS widening and repolarization abnormality Abnormal ECG Compared to ECG 10/10/2016 12:48:39 Atrial premature complex(es) now present Sinus rhythm no longer present First degree AV block no longer present Electronically Signed On 09-07-17 10:19:04 CDT by Pradeep Bearden
[2017-09-07] MEDS ORDERED: ONDANSETRON 4 MG/2 ML VIAL IV PRN (10:53)
[2017-09-07] MEDS ORDERED: ALBUTEROL 2.5 MG/3 ML NEB SOL NEB PRN (10:53)
[2017-09-07] MEDS ORDERED: ACETAMINOPHEN 500 MG TAB PO PRN (10:53)
[2017-09-07 12:46] VITALS: BMI 19.7
[2017-09-07] MEDS ORDERED: FUROSEMIDE 20 MG/ 2ML VIAL IV ONE (12:56)
[2017-09-07] MEDS: FUROSEMIDE 20 MG/ 2ML VIAL IV SCH (16:35)
[2017-09-07] MEDS: LOSARTAN POTASSIUM 50 MG TABLET PO SCH (16:36)
[2017-09-07] MEDS: CARVEDILOL 3.125 MG TAB PO SCH (16:36)
[2017-09-07] MEDS: ATORVASTATIN 40 MG TAB PO SCH (22:16)
--- NOTE | 2017-09-08 03:18 | HP ---
Date of Admission: 09/07/2017 Chief Complaint: Shortness of breath. History Of Present Illness: An 87-year-old male who was brought to the emergency room because of con tinued and worsening dyspnea. The patient was found to have evidence of congestive heart failure. T he patient, according to the family, has stopped taking his medicines that included Lasix. Past Medical History: Positive for coronary bypass surgery, congestive heart failure, hypertension, COPD. Family History: Noncontributory. Personal History: Currently nonsmoker. Past Surgical History: Positive for gallbladder surgery, permanent pacemaker, aortic aneurysm repair . Review of Systems: The patient denied any abdominal pain, fever, chills, or rigors. Physical Examination: General: Revealed an 87-year-old male, alert for his age. HEENT: Negative. Neck: Supple. JVD negative. Chest: Old surgical scar seen, crackles at both bases. Heart: Irregularity noted. Abdomen: Soft. Extremities: Mild pedal edema. Laboratory Data: White count at admission 7.9. Chem profile; BUN 29, creatinine 1.37. Troponin 0.0 7. BNP 4843. Diagnostic Data: Chest x-ray, pulmonary congestion and pleural effusion. Assessment: 1.Decompensated congestive heart failure. 2.Noncompliance with medication. 3.Status post coronary bypass surgery. 4.Status post permanent pacemaker. 5.Chronic obstructive pulmonary disease. Plan: The patient is started on Coreg, IV Lasix, and Cozaar. The patient's condition will be re-akanksha luated in a.m. ANNA/SHANTELLE Voice ID: [id number]
[2017-09-08] MEDS: CARVEDILOL 3.125 MG TAB PO SCH ×2 (05:22→17:31)
[2017-09-08] MEDS: FUROSEMIDE 20 MG/ 2ML VIAL IV SCH ×2 (08:34→17:32)
--- NOTE | 2017-09-08 08:55 | ECHO ---
HEIGHT: 5 ft 6 in WEIGHT: 120 lb 3.2 oz DATE OF STUDY: 09/07/[address]: Morro Donnelly MD 2-DIMENSIONAL: YES M.MODE: YES DOPPLER: YES COLOR FLOW: YES TDS: NO PORTABLE: NO DEFINITY: NO BUBBLE STUDY: NO DIAGNOSIS: CONGESTIVE HEART FAILURE CARDIAC HISTORY: CATHERIZATION: YES SURGERY: YES PROSTHETIC VALVE: NO PACEMAKER: YES MEASUREMENTS (cm) DIASTOLIC (NORMALS) SYSTOLIC (NORMALS) IVSd 1.1 (0.6-1.2) LA Diam 3.5 (1.9-4.0) LVEF 10-15% LVIDd 5.9 (3.5-5.7) LVIDs 5.4 (2.0-3.5) %FS 8% LVPWd 1.3 (0.6-1.2) Ao Diam 3.4 (2.0-3.7) 2 DIMENSIONAL ASSESSMENT: RIGHT ATRIUM: DILATED LEFT ATRIUM: DILATED RIGHT VENTRICLE: DILATED LEFT VENTRICLE: DILATED TRICUSPID VALVE: NORMAL MITRAL VALVE: MITRAL ANNULAR CALCIFICATION PULMONIC VALVE: NORMAL AORTIC VALVE: NORMAL PERICARDIAL EFFUSION: NONE AORTIC ROOT: NORMAL LEFT VENTRICULAR WALL MOTION: SEVERE GLOBAL HYPOKINESIS. DOPPLER/COLOR FLOW: MILD MITRAL, AORTIC AND TRICUSPID REGURGITATION. RIGHT VENTRICULAR SYSTOLIC PRESSURE 46mmHg. COMMENTS: LARGE PLEURAL EFFUSION. SEVERE GLOBAL HYPOKINESIS. PACEMAKER IN RIGHT VENTRICLE APEX. FOUR CHAMBER DILATATION. MITRAL ANNULAR CALCIFICATION. LEFT VENTRICULAR EJECTION FRACTION 10-15%. MODERATE PULMONARY HYPERTENSION. RIGHT VENTRICULAR SYSTOLIC PRESSURE 46mmHg. MILD MITRAL, AORTIC AND TRICUSPID REGURGITATION. TECHNOLOGIST: Rosamaria TODD
[2017-09-08] MEDS: ATORVASTATIN 40 MG TAB PO SCH (20:20)
--- NOTE | 2017-09-09 01:55 | PN ---
The patient is breathing much easier. He has few basilar crackles. He is ambulating in the room. T he patient, if looks stable, will be discharged in a.m. on oral medications. ANNA/SHANTELLE Voice ID: [id number] Report ID: [id number]
[2017-09-09] MEDS: CARVEDILOL 3.125 MG TAB PO SCH (05:17)
[2017-09-09 08:04] VITALS: BP 132/62; TEMP 97.6
[2017-09-09] MEDS: LOSARTAN POTASSIUM 50 MG TABLET PO SCH (08:21)
[2017-09-09] MEDS: FUROSEMIDE 20 MG/ 2ML VIAL IV SCH (08:22)
[2017-09-09 08:57] VITALS: O2SAT 96
--- NOTE | 2017-09-20 00:40 | DS ---
Date of Discharge: 09/09/2017 Final Diagnoses: 1.Congestive heart failure. 2.Coronary artery disease. 3.Status post coronary bypass surgery. 4.Permanent pacemaker. 5.Noncompliance with medications. 6.Chronic obstructive pulmonary disease. Hospital Course: This patient was brought to the emergency room because of shortness of breath. The patient had heart failure as well as COPD. The patient stopped taking Lasix and decompensated. The patient received IV Lasix in the emergency room as well as after transfer to the floor. The patient showed improvement over the next few days. His ejection fraction was very low around 15 to 20%. Th e patient was advised regarding compliance with medication and discharged home on 09/09/2017 to have follow up in the office. Laboratory Data: White count normal. BUN 29, BNP 4843. RRK/MODL Voice ID: [id number] Report ID: [id number]
== END 2017-09-09 10:00 | disposition home or self-care (01) | DRG 293 ==
LOC: ER 06:59 → ERHOLD 08:59 → 4TH 10:58
PROVIDERS: ADMIT Internal Medicine; ATTEND Internal Medicine
DX: I11.0 Hypertensive heart disease with heart failure (principal); I50.43 Acute on chronic combined systolic (congestive) and diastolic (congestive) heart failure; J44.9 Chronic obstructive pulmonary disease, unspecified; I25.10 Atherosclerotic heart disease of native coronary artery without angina pectoris; Z95.1 Presence of aortocoronary bypass graft; Z95.0 Presence of cardiac pacemaker; Z91.14 Patient's other noncompliance with medication regimen
CPT/HCPCS: 36415; 71045; 80048; 81003; 83880; 84484; 85025; 85610; 85730; 87040; 93005; 93306; 96374; 99285; J1940

== ENCOUNTER 2018-03-05 10:24 | Emergency (ER) | payer OTHER ==
--- OUTSIDE RECORDS SUMMARY | 2018-03-05 10:25 | XMS REPORT | Clinical Summary ---
:1930 Author Organization [facility] Address [address] [place] [address] Phone Care Team Providers Name Role Phone [...] Noted Date Cerebrovascular accident (CVA), unspecified mechanism (HCC) 10/11/2016 Left-sided weakness 10/11/2016 Stroke (HCC) 10/10/2016 Uncontrolled hypertension 10/10/2016 Coronary artery disease involving [place] coronary artery of [place] heart 10/10 without angina pectoris S/P CABG x 3 10/10/2016 Skin cancer 10/10/2016 H/O aortic aneurysm repair 10/10/2016 S/P placement of cardiac pacemaker 10/10/2016 Mixed hyperlipidemia 10/10/2016 Social History Tobacco Use Types Packs/Day Years Used Date Never Assessed Sex Assigned at Date Recorded Not on file Last Filed Vital Signs Not on file Plan of Treatment Not on file Results Not on fileafter 03/04/2017
--- OUTSIDE RECORDS SUMMARY | 2018-03-05 10:26 | XMS REPORT ---
:1930 [facility] Address [facility] [address] [place] [address] Care Team Providers Name Role Phone JONATHON NAJERA Unavailable Unavailable Problems This patient has no known problems. Allergies, Adverse Reactions, Alerts This patient has no known allergies or adverse reactions. Medications This patient has no known medications. Results Test Description Test Time Test Comments Text Results Atomic Results Result Comments URINE CULTURE 2016-10-12 11:00:00 Test Item Value Reference Range Comments CULTURE (BEAKER) (test nuvz=4256) No growth TROPONIN [id number] 14:17:00 Test Item Value Reference Range Comments TROPONIN I (BEAKER) (test danz=124) 0.03 ng/mL 0.00-0.03 Effective 04/17/2014: Reference Range [...] acute neurological disease, and persistent tachyarrhythmia.FastingURINALYSIS W/ [id number] 09:46:00 Test Item Value Reference Range Comments COLOR (BEAKER) (test vqrj=835) Yellow CLARITY (BEAKER) (test jaod=833) Clear SPECIFIC GRAVITY UA (BEAKER) (test rdls=083) 1.009 1.001-1.035 PH UA (BEAKER) (test pcxe=313) 5.5 5.0-8.0 PROTEIN UA (BEAKER) (test tlsj=297) Negative Negative GLUCOSE UA (BEAKER) (test pblu=638) Negative Negative KETONES UA (BEAKER) (test icap=214) Negative Negative BILIRUBIN UA (BEAKER) (test apoh=034) Negative Negative BLOOD UA (BEAKER) (test iuai=598) Trace Negative NITRITE UA (BEAKER) (test jwjl=030) Negative Negative LEUKOCYTE ESTERASE UA (BEAKER) (test ppln=272) Moderate Negative UROBILINOGEN UA (BEAKER) (test qhga=689) 0.2 mg/dL 0.2-1.0 RBC UA (BEAKER) (test zwio=090) 6 /HPF WBC UA (BEAKER) (test evkh=969) 6 /HPF SOURCE(BEAKER) (test ewaz=3961) Urine, Voided HEMOGLOBIN [id number] 09:13:00 Test Item Value Reference Range Comments HEMOGLOBIN A1C (BEAKER) (test kmas=094) 4.8 % 4.3-6.1 TSH/FREE T4 IF [id number] 08:42:00 Test Item Value Reference Range Comments THYROID STIMULATING HORMONE (BEAKER) (test 2.41 uIU/mL 0.35-4.94 voza=421) VITAMIN B12 AND [id number] 08:42:00 Test Item Value Reference Range Comments VITAMIN B12 (BEAKER) (test musd=208) 526 pg/mL 213-816 FOLATE (BEAKER) (test yteg=444) 15.4 ng/mL >=7.0 Effective 04/17/2014: Folate Reference Range ChangeNew: >=7.0 Previous: & gt;=5.4CBC W/PLT COUNT & AUTO [id number] 08:18:00 Test Item Value Reference Range Comments WHITE BLOOD CELL COUNT (BEAKER) (test grod=999) 7.1 K/ L 4.0-10.0 RED BLOOD CELL COUNT (BEAKER) (test woir=712) 4.37 M/ L 4.20-5.80 HEMOGLOBIN (BEAKER) (test rdil=907) 14.0 GM/DL 13.0-16.8 HEMATOCRIT (BEAKER) (test wqio=571) 41.3 % 40.0-50.0 MEAN CORPUSCULAR VOLUME (BEAKER) (test pqzd=604) 94.6 fL 82.0-98.0 MEAN CORPUSCULAR HEMOGLOBIN (BEAKER) (test 32.0 pg 27.0-33.0 schw=839) MEAN CORPUSCULAR HEMOGLOBIN CONC (BEAKER) (test 33.8 GM/DL 32.0-36.0 khdd=526) RED CELL DISTRIBUTION WIDTH (BEAKER) (test 12.9 % 10.3-14.2 sfcg=182) PLATELET COUNT (BEAKER) (test qerz=056) 114 K/CU MM 150-430 MEAN PLATELET VOLUME (BEAKER) (test eodd=091) 8.8 fL 6.5-10.5 NUCLEATED RED BLOOD CELLS (BEAKER) (test 0 /100 WBC 0-0 pxwh=922) NEUTROPHILS RELATIVE PERCENT (BEAKER) (test 57 % xnes=513) LYMPHOCYTES RELATIVE PERCENT (BEAKER) (test 26 % kmuo=981) MONOCYTES RELATIVE PERCENT (BEAKER) (test 12 % nhch=825) EOSINOPHILS RELATIVE PERCENT (BEAKER) (test 5 % wzar=594) BASOPHILS RELATIVE PERCENT (BEAKER) (test 0 % jgrj=297) NEUTROPHILS ABSOLUTE COUNT (BEAKER) (test 4.10 K/ L 1.80-8.00 khgi=359) LYMPHOCYTES ABSOLUTE COUNT (BEAKER) (test 1.85 K/ L 1.48-4.50 flun=458) MONOCYTES ABSOLUTE COUNT (BEAKER) (test 0.83 K/ L 0.00-1.30 duja=591) EOSINOPHILS ABSOLUTE COUNT (BEAKER) (test 0.34 K/ L 0.00-0.50 veeb=650) BASOPHILS ABSOLUTE COUNT (BEAKER) (test 0.03 K/ L 0.00-0.20 poka=577) [id number] 07:39:00 Test Item Value Reference Range Comments PHOSPHORUS (BEAKER) (test iirv=282) 3.0 mg/dL 2.3-4.7 [id number] 07:39:00 Test Item Value Reference Range Comments MAGNESIUM (BEAKER) (test idak=889) 2.0 mg/dL 1.6-2.6 FastingCOMPREHENSIVE METABOLIC [id number] 07:39:00 Test Item Value Reference Range Comments TOTAL PROTEIN (BEAKER) 6.2 gm/dL 6.0-8.3 (test zutz=926) ALBUMIN (BEAKER) (test 3.4 g/dL 3.5-5.0 yxhk=0988) ALKALINE PHOSPHATASE 94 U/L 40-150 (BEAKER) (test xvls=359) BILIRUBIN TOTAL (BEAKER) 1.1 mg/dL 0.2-1.2 (test occk=005) SODIUM (BEAKER) (test 138 meq/L 136-145 itum=810) POTASSIUM (BEAKER) (test 3.9 meq/L 3.5-5.1 xzrx=856) CHLORIDE (BEAKER) (test 108 meq/L 98-107 eufq=713) CO2 (BEAKER) (test 21 meq/L 22-29 bcsc=983) BLOOD UREA NITROGEN 19 mg/dL 7-21 (BEAKER) (test idmi=197) CREATININE (BEAKER) (test 1.05 mg/dL 0.57-1.25 xcgs=920) GLUCOSE RANDOM (BEAKER) 84 mg/dL 70-105 (test lcek=528) CALCIUM (BEAKER) (test 9.5 mg/dL 8.4-10.2 ouhw=996) AST (SGOT) (BEAKER) (test 26 U/L 5-34 btsz=272) ALT (SGPT) (BEAKER) (test 26 U/L 6-55 nqvt=273) EGFR (BEAKER) (test 67 mL/min/1.73 sq m ESTIMATED GFR IS NOT ansi=8699) ACCURATE CREATININE CLEARANCE IN PREDICTING GLOMERULAR FILTRATION RATE. ESTIMATED GFR IS NOT APPLICABLE FOR DIALYSIS PATIENTS. FastingLIPID [id number] 07:39:00 Test Item Value Reference Range Comments TRIGLYCERIDES (BEAKER) (test lczw=513) 69 mg/dL CHOLESTEROL (BEAKER) (test ygav=058) 128 mg/dL HDL CHOLESTEROL (BEAKER) (test gdze=480) 42 mg/dL LDL CHOLESTEROL CALCULATED (BEAKER) (test 72 mg/dL xdvn=843) Triglyceride Reference Range: Low Risk <150 Borderline 150- 199 High Risk 200-499 Very High Risk >=500Cholesterol Reference Range: Low Risk <200 Borderline 200-239 High Risk > 240HDL Cholesterol Reference Range: Low Risk >=60 High Risk <40LDL Cholesterol Reference Range: Optimal <100 Near Optimal 100-129 Borderline 130-159 High 160-189 Very High >=190 FastingTROPONIN [id number] 02:04:00 Test Item Value Reference Range Comments TROPONIN I (ARPAN) (test whnt=065) 0.03 ng/mL 0.00-0.03 Effective 04/17/2014: Reference Range [...]
[2018-03-05] MEDS ORDERED: NA CHLORIDE 0.9% 1,000 ML ONE (10:54)
[2018-03-05] MEDS ORDERED: IPRATROPIUM BROM 0.5MG/2.5ML ONE (10:54)
[2018-03-05] MEDS ORDERED: ALBUTEROL 2.5 MG/3 ML NEB SOL ONE (10:54)
--- NOTE | 2018-03-05 12:27 | RAD REPORT ---
EXAM DESCRIPTION: CT - Head Brain Wo Cont - 03/05/2018 12:16 pm CLINICAL HISTORY: Head injury status post fall. Headache COMPARISON: September 2016 TECHNIQUE: Computed axial tomography of the head was obtained. IV contrast was not requested. All CT scans are performed using dose optimization technique as appropriate and may include automated exposure control or mA/KV adjustment according to patient size. FINDINGS: An intracranial bleed is not seen . The ventricles are normal in caliber. Cerebral atrophy is noted. No extra-axial fluid collection is noted. Mild low-density areas within periventricular, deep and sub cortical white matter likely represent ischemic changes secondary to small vessel disease. Fluid within the sinuses/ mastoids is not seen. IMPRESSION: No acute intracranial abnormality is seen. If patient's symptoms persist MRI of the bra in would be recommended.
--- NOTE | 2018-03-05 12:56 | RAD REPORT ---
EXAM DESCRIPTION: RAD - Pelvis - 03/05/2018 12:43 pm CLINICAL HISTORY: Pelvic pain status post fall FINDINGS: No fracture or dislocation is seen. Bones are osteoporotic
--- NOTE | 2018-03-05 12:57 | RAD REPORT ---
EXAM DESCRIPTION: RAD - Hip Right 2 View - 03/05/2018 12:43 pm CLINICAL HISTORY: Right hip pain FINDINGS: No fracture or dislocation is seen. Bones are osteoporotic
--- NOTE | 2018-03-05 12:57 | RAD REPORT ---
EXAM DESCRIPTION: RAD - Knee Right 3 View - 03/05/2018 12:43 pm CLINICAL HISTORY: Right knee pain status post fall FINDINGS: No fracture or dislocation is seen. Bones are osteoporotic
--- NOTE | 2018-03-05 12:59 | RAD REPORT ---
EXAM DESCRIPTION: RAD - Ankle Right 3 View - 03/05/2018 12:43 pm CLINICAL HISTORY: Right ankle pain status post fall FINDINGS: No fracture or dislocation is seen. Soft tissue swelling is present
--- NOTE | 2018-03-05 13:03 | RAD REPORT ---
EXAM DESCRIPTION: RAD - Foot Right 3 View - 03/05/2018 12:43 pm CLINICAL HISTORY: Right foot pain status post fall FINDINGS: No fracture or dislocation is seen
[2018-03-05 13:50] LABS: Potassium 4.8 mmol/L (3.5-5.1)
[2018-03-05 14:14] LABS: Urine Bacteria >50 /HPF (NONE SEEN); Urine Culture Reflex Order REFLEXED
--- NOTE | 2018-03-05 14:31 | RAD REPORT ---
EXAM DESCRIPTION: USExtremity Venous Uni Ltd03/05/2018 2:08 pm CLINICAL HISTORY: Right leg pain and swelling. COMPARISON: None. FINDINGS: Right common femoral, superficial femoral, popliteal and right posterior tibial veins are compressible and demonstrate augmentation. Doppler demonstrates good flow. IMPRESSION: No evidence of deep venous thrombosis involving the right lower extremity.
--- NOTE | 2018-03-05 14:47 | ER ---
Nurse's Notes [facility] Name: Marcial Hamilton Age: 88 yrs Sex: Male : 1930 Arrival Date: 03/05/2018 Time: 10:26 Bed 13 Private MD: Morro Donnelly R Diagnosis: Sprain of ankle;Fall Presentation: 03/05 10:39 Presenting complaint: Pt's states "he's been falling a lot over the last week and aa5 today he fell when I was outside so I didn't see". Pt states "I just tripped". Pt denies head injury, denies LOC. Pt c/o pain to right ankle and right foot and states "it's sore all the way up to my hip". Transition of care: patient was not received from another setting of care. Onset of symptoms was March 05, 2018. Risk Assessment: Do you want to hurt yourself or someone else? Patient reports no desire to harm self or others. Initial Sepsis Screen: Does the patient meet any 2 criteria? No. Patient's initial sepsis screen is negative. Does the patient have a suspected source of infection? No. Patient's initial sepsis screen is negative. Care prior to arrival: None. 10:39 Method Of Arrival: Wheelchair aa5 10:39 Acuity: LEANDRO 3 aa5 Historical: - Allergies: 10:42 Codeine; aa5 - PMHx: 10:42 "fluid around the heart"; CHF; CVA; enlarged prostate; Hyperlipidemia; Hypertension; aa5 Myocardial infarction; - PSHx: 10:42 stents in left ear; triple bypass; AAA repair; Cholecystectomy; pacemaker; aa5 - Immunization history:: Pneumococcal vaccine is up to date, Flu vaccine is not up to date. - Social history:: Smoking status: Patient/guardian denies using tobacco. - Ebola Screening: : No symptoms or risks identified at this time. Screenin:40 Abuse screen: Denies threats or abuse. Nutritional screening: No deficits noted. aa5 Tuberculosis screening: No symptoms or risk factors identified. Fall Risk Fall in past 12 months (25 points). Secondary diagnosis (15 points) CVA, No IV (0 pts). Ambulatory Aid- Crutches/Cane/Walker (15 pts). Gait- Weak (10 pts.). Mental Status- Oriented to own ability (0 pts). Total Wilson Fall Scale indicates High Risk Score (45 or more points). Fall prevention measures have been instituted. Side Rails Up X 2 Family Present and informed to notify staff if the need to leave the bedside. Assessment: 11:40 General: Appears comfortable, Behavior is calm, cooperative. Pain: Complains of pain in aa5 right ankle and right foot Pain radiates to up the right leg and right hip Pain currently is 10 out of 10 on a pain scale. Quality of pain is described as aching, pressure, throbbing, Pain began today Is continuous. Neuro: Level of Consciousness is awake, alert, obeys commands, Oriented to person, place, time, situation. Cardiovascular: Heart tones S1 S2 present. Respiratory: Airway is patent Respiratory effort is even, unlabored, Respiratory pattern is regular, symmetrical. GI: No signs and/or symptoms were reported involving the gastrointestinal system. : No signs and/or symptoms were reported regarding the genitourinary system. EENT: No signs and/or symptoms were reported regarding the EENT system. Derm: Skin is pink, warm \\T\\ dry. Bruising that is bright red, dark purple, green, yellow, on dorsum of right foot and right toes. Musculoskeletal: Swelling present in right lower leg, right foot, and right ankle. 12:30 Reassessment: Patient appears in no apparent distress at this time. No changes from aj1 previously documented assessment. Patient and/or family updated on plan of care and expected duration. Pain level reassessed. Patient is alert, oriented x 3, equal unlabored respirations, skin warm/dry/pink. 13:30 Reassessment: Patient and/or family updated on plan of care and expected duration. Pain aj1 level reassessed. General: Appears in no apparent distress. comfortable, Behavior is calm, cooperative. Neuro: Level of Consciousness is awake, alert, obeys commands. Cardiovascular: Patient's skin is warm and dry. Respiratory: Airway is compromised Respiratory effort is even, unlabored, Respiratory pattern is regular, symmetrical. Derm: Bruising that is on dorsum of right foot. Musculoskeletal: Swelling present in right foot and right ankle. 14:30 Reassessment: Patient appears in no apparent distress at this time. No changes from aj1 previously documented assessment. Patient and/or family updated on plan of care and expected duration. Pain level reassessed. Patient is alert, oriented x 3, equal unlabored respirations, skin warm/dry/pink. Vital Signs: 10:42 BP 146 / 56; Pulse 83; Resp 16 S; Temp 98.0(TE); Pulse Ox 98% on R/A; Weight 63.5 kg aa5 (R); Height 5 ft. 7 in. (170.18 cm) (R); Pain 10/10; 11:44 BP 169 / 72; Pulse 76; Resp 18; Pulse Ox 97% on R/A; aj1 12:45 BP 164 / 62; Pulse 72; Resp 18; Pulse Ox 100% on R/A; aj1 13:45 BP 182 / 75; Pulse 84; Resp 18; Pulse Ox 96% on R/A; aj1 10:42 Body Mass Index 21.93 (63.50 kg, 170.18 cm) aa5 ED Course: 10:26 Patient arrived in ED. as 10:27 Morro Donnelly MD is Private Physician. as 10:41 Triage completed. aa5 10:41 Arm band placed on. aa5 10:41 Patient has correct armband on for positive identification. aa5 11:35 Larry Dorantes PA is PHCP. [facility] 11:35 Kwadwo Estrada MD is Attending Physician. jmm 12:16 CT Head Brain wo Cont In Process Unspecified. EDMS 12:43 Foot Right 3 View XRAY In Process Unspecified. EDMS 12:44 Ankle Right 3 View XRAY In Process Unspecified. EDMS 12:44 Knee Right 3 View XRAY In Process Unspecified. EDMS 12:44 Pelvis XRAY In Process Unspecified. EDMS 12:44 Hip Right 2 View XRAY In Process Unspecified. EDMS 13:08 Initial lab(s) drawn, by ma, sent to lab. Inserted saline lock: 20 gauge in right dh3 antecubital area, using aseptic technique. Blood collected. 13:28 Urine collected: urinal, clear. dh3 14:02 Ultrasound completed. Patient tolerated well. Notified BOX BUILDER/PA LARRY. sg3 14:08 US Extremity Venous Unilateral Ltd In Process Unspecified. EDMS 14:34 EKG done, by ED staff, reviewed by Larry GALEANO. 3 14:39 Yohannes wrap to right ankle and right foot and dorsum of right foot. 3 14:46 Morro Donnelly MD is Referral Physician. [facility] 14:50 Mandy Abdullahi, RN is Primary Nurse. aj 15:06 No provider procedures requiring assistance completed. IV discontinued, intact, hb bleeding controlled, No redness/swelling at site. Pressure dressing applied. Administered Medications: No medications were administered Outcome: 14:46 Discharge ordered by . [facility] 15:06 Discharged to home via wheelchair. 15:06 Condition: stable 15:06 Discharge instructions given to patient, family, Instructed on discharge instructions, follow up and referral plans. medication usage, Demonstrated understanding of instructions, follow-up care, medications. 15:07 Patient left the ED. Signatures: Dispatcher [employer] EDMS Mandy Abdullahi, RN RN aj1 Larry Dorantes PA PA Caren Blue Audri, RN RN aa5 Chelle Rose RN RN Alanna Avila 3 Winter Perez 3 Corrections: (The following items were deleted from the chart) 10:41 10:39 Presenting complaint: Pt's states "he's been falling a lot over the last aa5 week and today he fell when I was outside so I didn't see". Pt states "I just tripped". Pt denies head injury, denies LOC. Pt c/o pain to right ankle and right foot aa5
--- NOTE | 2018-03-05 14:47 | EDPHYS ---
Physician Documentation [facility] Name: Marcial Hamilton Age: 88 yrs Sex: Male : 1930 Arrival Date: 03/05/2018 Time: 10:26 Bed 13 Private MD: Morro Donnelly R ED Physician Kwadwo Estrada HPI: 03/05 11:49 This 88 yrs old Male presents to ER via Wheelchair with complaints of Foot jmm Injury. 11:49 Details of fall: The patient fell from an upright position. Onset: The symptoms/episode jmm began/occurred acutely, 5 day(s) ago. Associated injuries: The patient sustained right leg. The patient has not experienced similar symptoms in the past. This is an 88 year old male with a history of CHF, CVA, that presents to the ED after an unwitnessed fall which occurred this past Wednesday. The fall was unwitnessed but the patient's family believes he fell into a door. Denies LOC, vomiting, behavior change. Family states the patient has had multiple falls over the past 3 weeks. Patient denies chest pain, shortness of breath, abdominal pain. . Historical: - Allergies: 10:42 Codeine; aa5 - PMHx: 10:42 "fluid around the heart"; CHF; CVA; enlarged prostate; Hyperlipidemia; Hypertension; aa5 Myocardial infarction; - PSHx: 10:42 stents in left ear; triple bypass; AAA repair; Cholecystectomy; pacemaker; aa5 - Immunization history:: Pneumococcal vaccine is up to date, Flu vaccine is not up to date. - Social history:: Smoking status: Patient/guardian denies using tobacco. - Ebola Screening: : No symptoms or risks identified at this time. ROS: 19:27 Constitutional: Negative for fever, chills, and weight loss, Cardiovascular: Negative jmm for chest pain, palpitations, and edema, Respiratory: Negative for shortness of breath, cough, wheezing, and pleuritic chest pain, Abdomen/GI: Negative for abdominal pain, nausea, vomiting, diarrhea, and constipation, Back: Negative for injury and pain. 19:27 MS/extremity: Positive for pain. 19:27 All other systems are negative. Exam: 19:27 Head/Face: atraumatic. Eyes: EOMI, no conjunctival erythema appreciated ENT: Moist jmm Mucus Membranes Neck: Trachea midline, Supple Chest/axilla: Normal chest wall appearance and motion. Cardiovascular: Regular rate and rhythm. No edema appreciated Respiratory: Normal respirations, no respiratory distress appreciated Abdomen/GI: Non distended, soft 19:27 Constitutional: The patient appears in no acute distress, alert, awake. 19:27 Musculoskeletal/extremity: ecchymosis and swelling appreciated to the right lower extremity, dorsalis pedis pulse intact, compartments are soft, NVI. Mild pain elicited on palpation of the knee with no pain on ROM. No pain on palpation of the right hip, mil pain on flexion. . 19:27 Skin: ecchymosis noted to the right lower leg. 19:27 Neuro: Orientation: is normal, Mentation: is normal, Memory: is normal. 19:27 Psych: Behavior/mood is pleasant, cooperative. Vital Signs: 10:42 BP 146 / 56; Pulse 83; Resp 16 S; Temp 98.0(TE); Pulse Ox 98% on R/A; Weight 63.5 kg aa5 (R); Height 5 ft. 7 in. (170.18 cm) (R); Pain 10/10; 11:44 BP 169 / 72; Pulse 76; Resp 18; Pulse Ox 97% on R/A; aj1 12:45 BP 164 / 62; Pulse 72; Resp 18; Pulse Ox 100% on R/A; aj1 13:45 BP 182 / 75; Pulse 84; Resp 18; Pulse Ox 96% on R/A; aj1 10:42 Body Mass Index 21.93 (63.50 kg, 170.18 cm) aa5 MDM: 11:45 Patient medically screened. [facility] 14:45 Data reviewed: vital signs, nurses notes. Counseling: I had a detailed discussion with [facility] the patient and/or guardian regarding: the historical points, exam findings, and any diagnostic results supporting the discharge/admit diagnosis, the need for outpatient follow up, to return to the emergency department if symptoms worsen or persist or if there are any questions or concerns that arise at home. 14:45 ED course: I discussed the patient with Dr. Donnelly whom will follow up with patient on [facility] Wednesday for reevaluation. Did not recommend antibiotic coverage for UTI. Patient is advised to use his walker at home. Family given strict return precautions. Patient understood and agrees with the plan of care. . 03/05 12:00 Order name: BMP; Complete Time: 14:12 [facility] 03/05 13:27 Order name: Urine Microscopic Only; Complete Time: 14:30 dh3 03/05 11:48 Order name: Foot Right 3 View XRAY; Complete Time: 13:05 [facility] 03/05 11:48 Order name: Ankle Right 3 View XRAY; Complete Time: 13:01 [facility] 03/05 11:48 Order name: Knee Right 3 View XRAY; Complete Time: 13:01 [facility] 03/05 14:16 Order name: Urine Culture [facility] 03/05 11:48 Order name: Pelvis XRAY; Complete Time: 13:01 [facility] 03/05 11:48 Order name: Hip Right 2 View XRAY; Complete Time: 13:01 [facility] 03/05 11:48 Order name: US Extremity Venous Unilateral Ltd; Complete Time: 14:31 [facility] 03/05 12:00 Order name: Urine Dipstick-Ancillary (obtain specimen); Complete Time: 13:24 [facility] 03/05 12:00 Order name: CT Head Brain wo Cont; Complete Time: 13:01 [facility] 03/05 12:00 Order name: EKG - Nurse/Tech; Complete Time: 14:21 [facility] 03/05 14:32 Order name: Yohannes wrap-joint; Complete Time: 14:40 [facility] Administered Medications: No medications were administered Disposition: 18:49 Co-signature as Attending Physician, Kwadwo Estrada MD. rn Disposition: 03/05/18 14:46 Discharged to Home. Impression: Sprain of ankle, Fall. - Condition is Stable. - Discharge Instructions: Ankle Sprain, Fall Prevention in the Home. - Medication Reconciliation Form, Thank You Letter, Antibiotic Education, Prescription Opioid Use form. - Follow up: Morro Donnelly MD; When: 2 - 3 days; Reason: Recheck today's complaints, Continuance of care, Re-evaluation by your physician. Signatures: Dispatcher [employer] EDMS Julian Dorantes PA PA Kwadwo Garrido MD MD rn Calderon, Audri, RN RN aa5 Chelle Rose RN RN Corrections: (The following items were deleted from the chart) 14:32 11:49 This is an 88 year old male with a history of CHF, CVA, that presents to the ED jd after an unwitnessed fall which occurred this past Wednesday. The fall was unwitnessed but the patient's family believes he fell into a door. Denies LOC, vomiting, behavior change. States the patient has had multiple falls since. . jd 15:07 14:46 03/05/2018 14:46 Discharged to Home. Impression: Sprain of ankle; Fall. Condition hb is Stable. Forms are Medication Reconciliation Form, Thank You Letter, Antibiotic Education, Prescription Opioid Use. Follow up: Morro Donnelly; When: 2 - 3 days; Reason: Recheck today's complaints, Continuance of care, Re-evaluation by your physician. [facility]
[2018-03-05 15:12] VITALS: TEMP 98
[2018-03-05 15:15] VITALS: BP 182/75; O2SAT 96
--- NOTE | 2018-03-06 10:22 | EKG ---
Test Date: 2018-03-05 Test Time: 14:30:38 Sales Support Rep: HARLEEN MEASUREMENT RESULTS: Intervals: Rate: 77 RI: 234 QRSD: 156 QT: 408 QTc: 461 [place]: P: 95 RI: 234 QRS: 34 T: 241 INTERPRETIVE STATEMENTS: Sinus rhythm with 1st degree AV block Left ventricular hypertrophy with QRS widening and repolarization abnormality Possible Inferior infarct, age undetermined Abnormal ECG Compared to ECG 09/07/2017 08:27:18 First degree AV block now present Myocardial infarct finding now present Sinus tachycardia no longer present Atrial premature complex(es) no longer present Electronically Signed On 03-06-18 10:21:29 CDT by Pradeep Bearden
== END 2018-03-05 15:07 | disposition home or self-care (01) ==
LOC: ER 10:24
DX: S93.401A Sprain of unspecified ligament of right ankle, initial encounter (principal); W19.XXXA Unspecified fall, initial encounter; Y93.89 Activity, other specified; Y92.9 Unspecified place or not applicable; Z88.5 Allergy status to narcotic agent; Z95.0 Presence of cardiac pacemaker; I10 Essential (primary) hypertension; I25.2 Old myocardial infarction
CPT/HCPCS: 36415; 70450; 72170; 73502; 73562; 73610; 73630; 80048; 81015; 87086; 87088; 93005; 93971; 99284; J7030

== ENCOUNTER 2018-06-03 12:55 | Observation (INO) | payer OTHER ==
--- OUTSIDE RECORDS SUMMARY | 2018-06-03 12:57 | XMS REPORT ---
:1930 [facility] [address] [place] [address] Care Team Providers Name Role Phone JONATHON NAJERA Unavailable Unavailable Problems This patient has no known problems. Allergies, Adverse Reactions, Alerts This patient has no known allergies or adverse reactions. Medications This patient has no known medications. Results Test Description Test Time Test Comments Text Results Atomic Results Result Comments URINE CULTURE 2016-10-12 11:00:00 Test Item Value Reference Range Comments CULTURE (BEAKER) (test srye=2557) No growth TROPONIN [id number] 14:17:00 Test Item Value Reference Range Comments TROPONIN I (BEAKER) (test lxvj=877) 0.03 ng/mL 0.00-0.03 Effective 04/17/2014: Reference Range [...] acute neurological disease, and persistent tachyarrhythmia.FastingURINALYSIS W/ [id number] 09:46:00 Test Item Value Reference Range Comments COLOR (BEAKER) (test nlcx=909) Yellow CLARITY (BEAKER) (test beps=138) Clear SPECIFIC GRAVITY UA (BEAKER) (test fpje=124) 1.009 1.001-1.035 PH UA (BEAKER) (test edcj=791) 5.5 5.0-8.0 PROTEIN UA (BEAKER) (test dkqi=401) Negative Negative GLUCOSE UA (BEAKER) (test bisb=627) Negative Negative KETONES UA (BEAKER) (test nrti=163) Negative Negative BILIRUBIN UA (BEAKER) (test mlhl=397) Negative Negative BLOOD UA (BEAKER) (test agkj=001) Trace Negative NITRITE UA (BEAKER) (test dbhx=660) Negative Negative LEUKOCYTE ESTERASE UA (BEAKER) (test loox=280) Moderate Negative UROBILINOGEN UA (BEAKER) (test ykaw=434) 0.2 mg/dL 0.2-1.0 RBC UA (BEAKER) (test khrz=679) 6 /HPF WBC UA (BEAKER) (test dumf=133) 6 /HPF SOURCE(BEAKER) (test ihcl=7036) Urine, Voided HEMOGLOBIN [id number] 09:13:00 Test Item Value Reference Range Comments HEMOGLOBIN A1C (BEAKER) (test amcc=302) 4.8 % 4.3-6.1 TSH/FREE T4 IF [id number] 08:42:00 Test Item Value Reference Range Comments THYROID STIMULATING HORMONE (BEAKER) (test 2.41 uIU/mL 0.35-4.94 diag=099) VITAMIN B12 AND [id number] 08:42:00 Test Item Value Reference Range Comments VITAMIN B12 (BEAKER) (test wrwe=475) 526 pg/mL 213-816 FOLATE (BEAKER) (test xphs=503) 15.4 ng/mL >=7.0 Effective 04/17/2014: Folate Reference Range ChangeNew: >=7.0 Previous: & gt;=5.4CBC W/PLT COUNT & AUTO [id number] 08:18:00 Test Item Value Reference Range Comments WHITE BLOOD CELL COUNT (BEAKER) (test lmxq=194) 7.1 K/ L 4.0-10.0 RED BLOOD CELL COUNT (BEAKER) (test yhgj=394) 4.37 M/ L 4.20-5.80 HEMOGLOBIN (BEAKER) (test upfz=816) 14.0 GM/DL 13.0-16.8 HEMATOCRIT (BEAKER) (test zhrj=186) 41.3 % 40.0-50.0 MEAN CORPUSCULAR VOLUME (BEAKER) (test drcx=807) 94.6 fL 82.0-98.0 MEAN CORPUSCULAR HEMOGLOBIN (BEAKER) (test 32.0 pg 27.0-33.0 rnuj=015) MEAN CORPUSCULAR HEMOGLOBIN CONC (BEAKER) (test 33.8 GM/DL 32.0-36.0 dwxm=686) RED CELL DISTRIBUTION WIDTH (BEAKER) (test 12.9 % 10.3-14.2 vyuy=011) PLATELET COUNT (BEAKER) (test tayd=728) 114 K/CU MM 150-430 MEAN PLATELET VOLUME (BEAKER) (test lbaj=005) 8.8 fL 6.5-10.5 NUCLEATED RED BLOOD CELLS (BEAKER) (test 0 /100 WBC 0-0 pout=538) NEUTROPHILS RELATIVE PERCENT (BEAKER) (test 57 % ujhz=996) LYMPHOCYTES RELATIVE PERCENT (BEAKER) (test 26 % ywyu=371) MONOCYTES RELATIVE PERCENT (BEAKER) (test 12 % bdzx=742) EOSINOPHILS RELATIVE PERCENT (BEAKER) (test 5 % kloe=063) BASOPHILS RELATIVE PERCENT (BEAKER) (test 0 % yitv=474) NEUTROPHILS ABSOLUTE COUNT (BEAKER) (test 4.10 K/ L 1.80-8.00 uaum=632) LYMPHOCYTES ABSOLUTE COUNT (BEAKER) (test 1.85 K/ L 1.48-4.50 gdvq=392) MONOCYTES ABSOLUTE COUNT (BEAKER) (test 0.83 K/ L 0.00-1.30 oqft=338) EOSINOPHILS ABSOLUTE COUNT (BEAKER) (test 0.34 K/ L 0.00-0.50 rons=281) BASOPHILS ABSOLUTE COUNT (BEAKER) (test 0.03 K/ L 0.00-0.20 fmtd=219) [id number] 07:39:00 Test Item Value Reference Range Comments PHOSPHORUS (BEAKER) (test ntrs=642) 3.0 mg/dL 2.3-4.7 [id number] 07:39:00 Test Item Value Reference Range Comments MAGNESIUM (BEAKER) (test xthh=160) 2.0 mg/dL 1.6-2.6 FastingCOMPREHENSIVE METABOLIC [id number] 07:39:00 Test Item Value Reference Range Comments TOTAL PROTEIN (BEAKER) 6.2 gm/dL 6.0-8.3 (test yvcs=089) ALBUMIN (BEAKER) (test 3.4 g/dL 3.5-5.0 mseg=1384) ALKALINE PHOSPHATASE 94 U/L 40-150 (BEAKER) (test gdzj=991) BILIRUBIN TOTAL (BEAKER) 1.1 mg/dL 0.2-1.2 (test wyfx=895) SODIUM (BEAKER) (test 138 meq/L 136-145 kaul=313) POTASSIUM (BEAKER) (test 3.9 meq/L 3.5-5.1 wmya=530) CHLORIDE (BEAKER) (test 108 meq/L 98-107 sope=035) CO2 (BEAKER) (test 21 meq/L 22-29 kxms=255) BLOOD UREA NITROGEN 19 mg/dL 7-21 (BEAKER) (test guia=673) CREATININE (BEAKER) (test 1.05 mg/dL 0.57-1.25 uyrv=838) GLUCOSE RANDOM (BEAKER) 84 mg/dL 70-105 (test slkv=136) CALCIUM (BEAKER) (test 9.5 mg/dL 8.4-10.2 rajo=555) AST (SGOT) (BEAKER) (test 26 U/L 5-34 rfas=941) ALT (SGPT) (BEAKER) (test 26 U/L 6-55 qcvc=360) EGFR (BEAKER) (test 67 mL/min/1.73 sq m ESTIMATED GFR IS NOT gunm=6571) ACCURATE CREATININE CLEARANCE IN PREDICTING GLOMERULAR FILTRATION RATE. ESTIMATED GFR IS NOT APPLICABLE FOR DIALYSIS PATIENTS. FastingLIPID [id number] 07:39:00 Test Item Value Reference Range Comments TRIGLYCERIDES (BEAKER) (test czdv=394) 69 mg/dL CHOLESTEROL (BEAKER) (test clsq=394) 128 mg/dL HDL CHOLESTEROL (BEAKER) (test jpmm=825) 42 mg/dL LDL CHOLESTEROL CALCULATED (BEAKER) (test 72 mg/dL nuiu=603) Triglyceride Reference Range: Low Risk <150 Borderline 150- 199 High Risk 200-499 Very High Risk >=500Cholesterol Reference Range: Low Risk <200 Borderline 200-239 High Risk > 240HDL Cholesterol Reference Range: Low Risk >=60 High Risk <40LDL Cholesterol Reference Range: Optimal <100 Near Optimal 100-129 Borderline 130-159 High 160-189 Very High >=190 FastingTROPONIN [id number] 02:04:00 Test Item Value Reference Range Comments TROPONIN I (ARPAN) (test dwah=971) 0.03 ng/mL 0.00-0.03 Effective 04/17/2014: Reference Range [...]
--- OUTSIDE RECORDS SUMMARY | 2018-06-03 12:57 | XMS REPORT | Clinical Summary ---
:1930 Author Organization [facility] Address [address] [place] [address] Care Team Providers Name Role Phone Shahid Primary Care Provider Unavailable Allergies No Known Allergies Medications Medication Sig Dispensed Refills Start Date End Date Status atorvastatin (LIPITOR) Take 40 mg by 0 Active 40 MG tablet mouth daily. furosemide (LASIX) 40 MG Take 40 mg by 0 Active tablet mouth daily. clopidogrel (PLAVIX) 75 Take 75 mg by 0 Active mg tablet mouth daily. metoprolol (TOPROL-XL) Take 25 mg by 0 Active 25 MG 24 hr tablet mouth daily. potassium chloride SA Take 20 mEq by 0 Active (K-DUR,KLOR-CON) 20 MEQ mouth daily. tablet Active Problems Problem Noted Date Cerebrovascular accident (CVA), unspecified mechanism 10/11/2016 Left-sided weakness 10/11/2016 Stroke 10/10/2016 Uncontrolled hypertension 10/10/2016 Coronary artery disease involving [place] coronary artery of [place] heart 10/10 without angina pectoris S/P CABG x 3 10/10/2016 Skin cancer 10/10/2016 H/O aortic aneurysm repair 10/10/2016 S/P placement of cardiac pacemaker 10/10/2016 Mixed hyperlipidemia 10/10/2016 Social History Tobacco Use Types Packs/Day Years Used Date Never Assessed Sex Assigned at Date Recorded Not on file Job Start Date Occupation Industry Not on file Not on file Not on file Travel History Travel Start Travel End No recent travel history available. Last Filed Vital Signs Not on file Plan of Treatment Not on file Results Not on fileafter 06/02/2017 Insurance Payer Benefit Plan / Group Subscriber ID Type Phone Address [facility] xxxxxxxxx Maps Contracted Advance Directives For more information, please contact:[address] [phone] Code Status Date Activated Date Inactivated Comments Full Code 10/10/2016 5:41 PM 10/11/2016 2:50 PM This code status was determined by: Patient
[2018-06-03 14:08] LABS: Absolute Lymphocytes (CBC) 0.9 K/uL (0.7-4.9); Absolute Monocytes 0.7 K/uL (0.1-1.3); Basophils % 0.6 % (0-1.3); Eosinophils % 0.3 % (0-4.4); Hematocrit 38.5 % (39.6-49.0); Lymphocytes % 13.9 % (15.3-44.8); MPV 9.3 fL (7.6-11.3); RBC Red Blood Cell Count 4.34 M/uL (4.33-5.43)
[2018-06-03 14:11] LABS: Protime INR 1.22
[2018-06-03 14:33] LABS: Bilirubin Direct 0.5 mg/dL (0-0.2); Bilirubin Total 1.6 mg/dL (0.2-1.0); Magnesium 2.1 mg/dL (1.8-2.4); Potassium 4.5 mmol/L (3.5-5.1); Protein, Total 6.5 g/dL (6.4-8.2); Troponin (Emerg Dept Use Only) 0.05 ng/mL (0.0-0.045)
--- NOTE | 2018-06-03 14:42 | RAD REPORT ---
EXAM DESCRIPTION: Tyler Single View06/03/2018 2:32 pm CLINICAL HISTORY: Shortness of breath COMPARISON: August 2017 FINDINGS: Moderate bilateral pulmonary opacities are present. Small to moderate left pleural effusion may be present. The heart is moderately enlarged. Pacemaker leads are in place. IMPRESSION: CHF
--- NOTE | 2018-06-03 16:53 | EDPHYS ---
Physician Documentation [facility] Name: Marcial Hamilton Age: 88 yrs Sex: Male : 1930 Arrival Date: 06/03/2018 Time: 12:58 Bed 26 Private MD: ED Physician Fermin Mendoza Historical: - Allergies: 06/03 13:13 Codeine; tw2 - Home Meds: 13:13 furosemide 40 mg Oral tab 1 tab once daily [Active]; potassium chloride 20 mEq Oral tw2 TbER 1 tab once daily [Active]; clopidogrel 75 mg Oral tab 1 tab once daily [Active]; metoprolol tartrate 25 mg Oral tab 1 tab once daily [Active]; atorvastatin 40 mg Oral tab 1 tab once daily [Active]; aspirin 325 mg Oral tab 1 tab once daily [Active]; - PMHx: 13:13 CHF; CVA; enlarged prostate; Hyperlipidemia; Hypertension; Myocardial infarction; tw2 - PSHx: 13:13 stents in left ear; triple bypass; Cholecystectomy; pacemaker; AAA repair; tw2 - Immunization history:: Adult Immunizations. - Social history:: Smoking status: . - Ebola Screening: : Patient denies travel to an Ebola-affected area in the 21 days before illness onset. Vital Signs: 12:53 BP 178 / 91; Pulse 100; Resp 17; Temp 98.1(A); Pulse Ox 97% on R/A; Pain 0/10; tw2 12:53 BP 169 / 97; Pulse 94; Resp 17; Pulse Ox 94% ; tw2 13:35 BP 163 / 83; Pulse 79; Resp 17; Pulse Ox 100% on 2 lpm NC; tw2 14:42 BP 176 / 84; Pulse 100; Resp 18; Pulse Ox 99% on 2 lpm NC; tw2 15:36 BP 174 / 89; Pulse 75; Resp 20; Pulse Ox 100% on 2 lpm NC; tw2 16:30 BP 154 / 78; Pulse 96; Resp 17; Pulse Ox 99% on 2 lpm NC; tw2 17:26 BP 164 / 96; Pulse 96; Resp 17; Pulse Ox 100% on 2 lpm NC; tw2 18:07 BP 165 / 90; Pulse 95; Resp 19; Pulse Ox 97% on 2 lpm NC; tw2 12:53 placed on o2 via 2L nc at this time, will continue to monitor tw2 MDM: 16:53 Patient medically screened. kdr 06/03 13:53 Order name: Basic Metabolic Panel; Complete Time: 14:57 tw2 06/03 13:53 Order name: CBC with Diff; Complete Time: 14:57 tw2 06/03 13:53 Order name: LFT's; Complete Time: 14:57 tw2 06/03 13:53 Order name: Magnesium; Complete Time: 14:57 tw2 06/03 13:53 Order name: NT PRO-BNP; Complete Time: 14:57 tw2 06/03 13:53 Order name: PT-INR; Complete Time: 14:57 tw2 06/03 13:53 Order name: Troponin (emerg Dept Use Only); Complete Time: 14:57 tw2 06/03 16:45 Order name: Sputum Culture iw 06/03 16:57 Order name: Basic Metabolic Panel EDMS 06/03 16:57 Order name: Basic Metabolic Panel EDMS 06/03 16:57 Order name: CBC with Automated Diff EDMS 06/03 16:57 Order name: CBC with Automated Diff EDMS 06/03 16:57 Order name: NT PRO-BNP EDMS 06/03 16:57 Order name: NT PRO-BNP EDMS 06/03 13:53 Order name: XRAY Chest (1 view); Complete Time: 14:57 tw2 06/03 13:53 Order name: EKG; Complete Time: 13:54 tw2 06/03 13:53 Order name: Cardiac monitoring; Complete Time: 14:01 tw2 06/03 13:53 Order name: EKG - Nurse/Tech; Complete Time: 14:01 tw2 06/03 13:53 Order name: IV Saline Lock; Complete Time: 14:01 tw06/03 13:53 Order name: Labs collected and sent; Complete Time: 14:01 tw2 06/03 13:53 Order name: O2 Per Protocol; Complete Time: 14:01 tw2 06/03 13:53 Order name: O2 Sat Monitoring; Complete Time: 14:12 tw06/03 15:21 Order name: Diet Heart Healthy; Complete Time: 15:22 iw 06/03 16:57 Order name: Low Sodium EDMS 06/03 16:57 Order name: Troponin I EDMS 06/03 16:57 Order name: Troponin I EDMS 06/03 16:57 Order name: Troponin I EDWI Administered Medications: 16:50 Drug: Lasix 40 mg Route: IVP; Site: left antecubital; tw2 17:47 Follow up: Response: No adverse reaction tw2 16:50 Drug: Lasix 20 mg Route: IVP; Site: left antecubital; tw2 17:47 Follow up: Response: No adverse reaction tw2 Disposition: 06/03/18 16:53 Hospitalization ordered by Morro Donnelly for Observation. Preliminary diagnosis is CHF exacerbation. - Bed requested for Telemetry/MedSurg (observation). - Status is Observation. tw2 - Condition is Fair. - Problem is an acute exacerbation. - Symptoms have improved. UTI on Admission? No Signatures: Dispatcher [employer] EDWI Fermin Mendoza MD MD [facility] Rosa Crocker Tara, RN RN tw2 Corrections: (The following items were deleted from the chart) 17:33 16:53 Hospitalization Ordered by Morro Donnelly MD for Observation. Preliminary diagnosis ag is CHF exacerbation. Bed requested for Telemetry/MedSurg (observation). Status is Observation. Condition is Fair. Problem is an acute exacerbation. Symptoms have improved. UTI on Admission? No. kdr 18:37 17:33 06/03/2018 16:53 Hospitalization Ordered by Morro Donnelly MD for Observation. tw2 Preliminary diagnosis is CHF exacerbation. Bed requested for Telemetry/MedSurg (observation). Status is Observation. Condition is Fair. Problem is an acute exacerbation. Symptoms have improved. UTI on Admission? No. ag
--- NOTE | 2018-06-03 16:53 | ER ---
Nurse's Notes [facility] Name: Marcial Hamilton Age: 88 yrs Sex: Male : 1930 Arrival Date: 06/03/2018 Time: 12:58 Bed 26 Private MD: Diagnosis: CHF exacerbation Presentation: 06/03 12:53 Presenting complaint: EMS states: pt is from home, call was for shortness of breath and tw2 weakness, him and have conflicting stories, he had an irregular rhythm when we arrived, when we stood him up to leave his pacemaker fired, vs stable, also pt and spouse may need a social service visit for failure to thrive as him and spouse live alone and she fell during visit for him. Transition of care: patient was not received from another setting of care. Onset of symptoms was June 03, 2018. Risk Assessment: Do you want to hurt yourself or someone else? Patient reports no desire to harm self or others. Initial Sepsis Screen: Does the patient meet any 2 criteria? No. Patient's initial sepsis screen is negative. Does the patient have a suspected source of infection? No. Patient's initial sepsis screen is negative. Care prior to arrival: IV initiated. 20 GA, in the left antecubital area. 12:53 Method Of Arrival: EMS: [facility] tw2 12:53 Acuity: LEANDRO 3 tw2 Triage Assessment: 12:53 General: Appears in no apparent distress. Respiratory: Onset: The symptoms/episode tw2 began/occurred this morning, the patient has moderate shortness of breath. Historical: - Allergies: 13:13 Codeine; tw2 - Home Meds: 13:13 furosemide 40 mg Oral tab 1 tab once daily [Active]; potassium chloride 20 mEq Oral tw2 TbER 1 tab once daily [Active]; clopidogrel 75 mg Oral tab 1 tab once daily [Active]; metoprolol tartrate 25 mg Oral tab 1 tab once daily [Active]; atorvastatin 40 mg Oral tab 1 tab once daily [Active]; aspirin 325 mg Oral tab 1 tab once daily [Active]; - PMHx: 13:13 CHF; CVA; enlarged prostate; Hyperlipidemia; Hypertension; Myocardial infarction; tw2 - PSHx: 13:13 stents in left ear; triple bypass; Cholecystectomy; pacemaker; AAA repair; tw2 - Immunization history:: Adult Immunizations. - Social history:: Smoking status: . - Ebola Screening: : Patient denies travel to an Ebola-affected area in the 21 days before illness onset. Screenin:39 Abuse screen: Denies threats or abuse. Nutritional screening: No deficits noted. tw2 Tuberculosis screening: No symptoms or risk factors identified. Fall Risk Secondary diagnosis (15 points) impaired mobility, CVA. Assessment: 12:53 General: Appears in no apparent distress. slender, Behavior is calm, cooperative, tw2 appropriate for age. Pain: Denies pain. Neuro: Level of Consciousness is awake, alert, obeys commands, Oriented to person, place, time, situation. Cardiovascular: Heart tones S1 S2 Capillary refill < 3 seconds Patient's skin is warm and dry. Rhythm is Respiratory: Reports shortness of breath Airway is patent Respiratory effort is even, unlabored, Respiratory pattern is regular, symmetrical, Breath sounds are clear bilaterally. GI: No signs and/or symptoms were reported involving the gastrointestinal system. Abdomen is flat, Bowel sounds present X 4 quads. : No signs and/or symptoms were reported regarding the genitourinary system. EENT: No signs and/or symptoms were reported regarding the EENT system. Derm: Skin is fragile, is thin, has skin tears on to b/l upper extremities. 13:35 Reassessment: Patient appears in no apparent distress at this time. No changes from tw2 previously documented assessment. Patient and/or family updated on plan of care and expected duration. Pain level reassessed. Patient is alert, oriented x 3, equal unlabored respirations, skin warm/dry/pink. 14:42 Reassessment: Patient appears in no apparent distress at this time. No changes from tw2 previously documented assessment. Patient and/or family updated on plan of care and expected duration. Pain level reassessed. Patient is alert, oriented x 3, equal unlabored respirations, skin warm/dry/pink. provider at bedside at this time. 15:36 Reassessment: Patient appears in no apparent distress at this time. No changes from tw2 previously documented assessment. Patient and/or family updated on plan of care and expected duration. Pain level reassessed. Patient is alert, oriented x 3, equal unlabored respirations, skin warm/dry/pink. 16:30 Reassessment: Patient appears in no apparent distress at this time. No changes from tw2 previously documented assessment. Patient and/or family updated on plan of care and expected duration. Pain level reassessed. Patient is alert, oriented x 3, equal unlabored respirations, skin warm/dry/pink. 17:28 Reassessment: Patient appears in no apparent distress at this time. No changes from tw2 previously documented assessment. Patient and/or family updated on plan of care and expected duration. Pain level reassessed. Patient is alert, oriented x 3, equal unlabored respirations, skin warm/dry/pink. 18:07 Reassessment: Patient appears in no apparent distress at this time. No changes from tw2 previously documented assessment. Patient and/or family updated on plan of care and expected duration. Pain level reassessed. Patient is alert, oriented x 3, equal unlabored respirations, skin warm/dry/pink. Vital Signs: 12:53 BP 178 / 91; Pulse 100; Resp 17; Temp 98.1(A); Pulse Ox 97% on R/A; Pain 0/10; tw2 12:53 BP 169 / 97; Pulse 94; Resp 17; Pulse Ox 94% ; tw2 13:35 BP 163 / 83; Pulse 79; Resp 17; Pulse Ox 100% on 2 lpm NC; tw2 14:42 BP 176 / 84; Pulse 100; Resp 18; Pulse Ox 99% on 2 lpm NC; tw2 15:36 BP 174 / 89; Pulse 75; Resp 20; Pulse Ox 100% on 2 lpm NC; tw2 16:30 BP 154 / 78; Pulse 96; Resp 17; Pulse Ox 99% on 2 lpm NC; tw2 17:26 BP 164 / 96; Pulse 96; Resp 17; Pulse Ox 100% on 2 lpm NC; tw2 18:07 BP 165 / 90; Pulse 95; Resp 19; Pulse Ox 97% on 2 lpm NC; tw2 12:53 placed on o2 via 2L nc at this time, will continue to monitor tw2 ED Course: 12:53 Bed in low position. Side rails up X2. telemetry monitor on. Pulse ox on. NIBP on. Warm tw2 blanket given. Pillow given. 12:58 Patient arrived in ED. tw2 12:58 Indira Lawrence RN is Primary Nurse. tw2 13:04 Triage completed. tw2 13:08 Arm band placed on. tw2 14:09 EKG done, by technician inventory specialist. reviewed by Fermin Mendoza MD. at1 14:27 X-ray completed. Portable x-ray completed in exam room. Patient tolerated procedure sw well. 14:32 XRAY Chest (1 view) In Process Unspecified. EDMS 14:34 Fermin Mendoza MD is Attending Physician. kdr 16:51 Morro Donnelly MD is Hospitalizing Provider. kdr 16:55 Sputum Culture Sent. tw2 18:07 No provider procedures requiring assistance completed. Maintain EMS IV. Dressing tw2 intact. Good blood return noted. Site clean \T\ dry. Gauge \T\ site: 20 g LEFT AC. Patient admitted, IV remains in place. Administered Medications: 16:50 Drug: Lasix 40 mg Route: IVP; Site: left antecubital; tw2 17:47 Follow up: Response: No adverse reaction tw2 16:50 Drug: Lasix 20 mg Route: IVP; Site: left antecubital; tw2 17:47 Follow up: Response: No adverse reaction tw2 Output: 17:46 Urine: 150ml (Voided); Total: 150ml. tw2 Outcome: 16:53 Decision to Hospitalize by Provider. kdr 18:12 Admitted to Med/surg accompanied by tech, via stretcher, room 401, Report called to tw2 SHIV Easley 18:12 Condition: stable 18:12 Instructed on the need for admit. 18:37 Patient left the ED. tw2 Signatures: Dispatcher [employer] EDNE Fermin Mendoza MD MD kdr Oma Silva, special warfare operator EKG Tat1 Alfreda Garcia Indira Lawrence, RN RN tw2
[2018-06-03] MEDS ORDERED: ONDANSETRON 4 MG/2 ML VIAL IV PRN (16:54)
[2018-06-03] MEDS ORDERED: ALBUTEROL 2.5 MG/3 ML NEB SOL NEB PRN (16:54)
[2018-06-03] MEDS ORDERED: ACETAMINOPHEN 500 MG TAB PO PRN (16:54)
[2018-06-03] MEDS ORDERED: IPRATROPIUM BROM 0.5MG/2.5ML NEB PRN (16:54)
[2018-06-03] MEDS ORDERED: FUROSEMIDE 100 MG/10 ML VIAL IV ONE (16:55)
[2018-06-03] MEDS: FUROSEMIDE 40 MG/4 ML VIAL IV SCH (17:00)
[2018-06-04 06:16] LABS: Absolute Lymphocytes (CBC) 1.5 K/uL (0.7-4.9); Absolute Monocytes 0.8 K/uL (0.1-1.3); Absolute Neutrophil 5.1 K/uL (1.8-8.0); Basophils % 1.1 % (0-1.3); Eosinophils % 0.8 % (0-4.4); Hematocrit 39.9 % (39.6-49.0); Lymphocytes % 19.8 % (15.3-44.8); MPV 9.4 fL (7.6-11.3); Monocytes % 10.5 % (3.3-12.3); RBC Red Blood Cell Count 4.54 M/uL (4.33-5.43)
[2018-06-04] MEDS: FUROSEMIDE 40 MG/4 ML VIAL IV SCH ×2 (08:06→17:08)
[2018-06-04 08:08] VITALS: BMI 16.0
[2018-06-04] MEDS ORDERED: METOPROLOL XL 25 MG TAB PO SCH (09:00)
[2018-06-04] MEDS ORDERED: POTASSIUM CL SA 10 MEQ TAB PO SCH (09:00)
[2018-06-04] MEDS ORDERED: CLOPIDOGREL 75 MG TABLET PO SCH (09:00)
[2018-06-04] MEDS ORDERED: ASPIRIN EC 325 MG TABLET PO SCH (09:00)
[2018-06-04] MEDS: HYDRALAZINE HCL 20 MG/ML VIAL IV PRN ×2 (12:37→17:09)
--- NOTE | 2018-06-04 13:57 | EKG ---
Test Date: 2018-06-03 Test Time: 14:00:38 Ceramic Tiler: ABHILASH MEASUREMENT RESULTS: Intervals: Rate: 76 OR: 188 QRSD: 158 QT: 422 QTc: 474 [place]: P: 63 OR: 188 QRS: 81 T: 264 INTERPRETIVE STATEMENTS: Normal sinus rhythm Left ventricular hypertrophy with QRS widening and repolarization abnormality Cannot rule out Inferior infarct, age undetermined Abnormal ECG Compared to ECG 03/05/2018 14:30:38 First degree AV block no longer present Myocardial infarct finding still present Electronically Signed On 06-04-18 13:54:05 AUTO BODY REPAIRER [employer] by Pradeep Bearden
[2018-06-04 16:44] VITALS: BP 175/78; TEMP 96.8
[2018-06-04 16:47] VITALS: O2SAT 95
[2018-06-04] MEDS ORDERED: ATORVASTATIN 40 MG TAB PO SCH (21:00)
--- NOTE | 2018-06-05 23:13 | CON ---
Date of Consultation: 06/04/2018 Admitted on 06/03/[address] Donnelly for congestive heart failure. I saw the patient on 06/04/2018. History Of Present Illness: Mr. Hamilton is an 88-year-old white male, has not seen a calf skinner for years, although he has a rather complicated past cardiac history. He has a history of CABG and abdo pushpa aortic aneurysm repair, hypertension, dyslipidemia, coronary artery disease status post stent. He has a history of CVA, congestive heart failure with an ejection fraction of 10% as of August 2017 and has a history of pacemaker. He used to see Dr. Marcin Maki, but has not seen him for many year s since Dr. Maki is retired and has not seen anybody else. He has not had his pacemaker checked f or many years. He came in with CHF exacerbation. He had shortness of breath, PND, orthopnea, and pe oscar edema, but no palpitation, no syncope, and no chest pain. Allergies: HE IS ALLERGIC TO CODEINE. Review of Systems: Negative. Social History: Negative. Family History: Negative. Medications: At home include aspirin, Lipitor, Plavix, Lasix, potassium, and Toprol. Physical Examination: Vital Signs: His blood pressure was 196/102, paced rhythm. He was not in any acute distress. He wa s pleasant. O2 saturation was adequate on 2 L of nasal cannula. HEENT: Negative. Neck: Supple without any lymphadenopathy, JVD, or bruit. Chest: Reveal some rales bibasilarly. Cardiac: Revealed a paced rhythm with S3 gallops. No murmurs or rubs. Abdomen: Benign. Extremities: Revealed no clubbing, cyanosis. He had 1+ edema. Pulses were present in the dorsalis pedis and posterior tibial arteries. Neurological: He was intact. Skin: Dry and intact. Diagnostic Data: His creatinine is 1.3. EKG showed paced rhythm. BNP was 35,742. Troponin was 0.0 6. Impression And Plan: 1.Chronic systolic congestive heart failure with acute exacerbation. 2.Status post pacemaker. 3.Status post cerebrovascular accident. 4.Coronary artery disease, status post percutaneous coronary intervention and coronary artery bypass grafting. 5.Abdominal aortic aneurysm, status post repair. 6.Dyslipidemia. 7.Hypertension, poorly controlled. We need to continue his present regimen with aspirin, Lipitor, Plavix, Lasix, IV potassium, and Topro l. He needs to have his pacemaker checked soon and I will make sure I will make an arrangement for slade rodriguez. He has an ejection fraction of 10%, but has done actually fairly well considering. I will disc uss the case further with Dr. Donnelly, but Mr. Hamilton indicated that he would like to see me in the off ice as an outpatient and I will make sure this will happen soon. I can check his pacemaker in the of alvino. CLAUDIA/SHANTELLE Voice ID: [id number] Report ID: [id number]
--- NOTE | 2018-06-06 03:23 | HP ---
Date of Admission: 06/03/2018 Chief Complaint: Shortness of breath. History Of Present Illness: An 88-year-old male was brought to the emergency room because of shortne ss of breath. He had evaluation done in the emergency room. The patient had evidence of congestive h eart failure. The patient, however, is known to have congestive heart failure and is on treatment. However, according to the , he skips his Lasix every so often after which he starts having increa sed shortness of breath and wheezing. thinks that he may not be taking his medicines. The ayo ent denied any chest pain, fever, chills, or rigors. Past Medical History: Positive for coronary artery disease, coronary bypass surgery, congestive hear t failure. Family History: Noncontributory. Personal History: Nonsmoker. Allergies: CODEINE. Home Medications: Please refer to the chart. Review of Systems: No history of fever, chills, or rigors. Physical Examination: General: An 88-year-old male, alert for his age. HEENT: Negative. Neck: Supple. JVD negative. Chest: Bilateral scattered wheezes. Heart: Irregularity noted. Old surgical scar seen on the chest. Abdomen: Soft. Extremities: Mild pedal edema. Laboratory: White count normal. Chem profile; BUN 25, creatinine 1.25, troponin 0.05. BNP 34,000. Assessment: 1.Congestive heart failure with decompensation. 2.Known congestive heart failure. 3.Known coronary artery disease. 4.Status post coronary artery bypass surgery. Plan: The patient did not want to stay and after Cardiology consultation, it was felt that the patie nt would be discharged as per his request and follow up in the office. The patient received IV Lasix with which he had adequate relief of symptoms. ANNA/SHANTELLE Voice ID: [id number]
== END 2018-06-04 18:46 | disposition home or self-care (01) ==
LOC: ER 12:55 → ERHOLD 16:53 → 4TH 18:16
PROVIDERS: ADMIT Internal Medicine; ATTEND Internal Medicine
DX: I11.0 Hypertensive heart disease with heart failure (principal); I50.23 Acute on chronic systolic (congestive) heart failure; I25.10 Atherosclerotic heart disease of native coronary artery without angina pectoris; E78.5 Hyperlipidemia, unspecified; Z95.1 Presence of aortocoronary bypass graft; Z95.0 Presence of cardiac pacemaker; Z86.73 Personal history of transient ischemic attack (TIA), and cerebral infarction without residual deficits
CPT/HCPCS: 36415; 71045; 80048 ×2; 80076; 83735; 83880 ×2; 84484 ×3; 85025 ×2; 85610; 87070; 87205; 93005; 96374; 99285; G0378 ×2; J0360 ×2; J1940 ×2